=== PATIENT | female | born 1995 | race Caucasian/White ===

== ENCOUNTER 2019-01-28 23:00 | Outpatient (CLI) | payer MEDICAID, SELFPAY ==
[2016-05-11 18:35] VITALS: BMI 37.7
[2019-01-29 00:15] VITALS: BMI 42.1
--- NOTE | 2019-01-29 12:19 | OB.TRI.PN ---
Progress Notes Date of Service: 01/29/19 Progress Note: Presented to L&D with complaint of decreased movement. at 37w5d. Had felt baby 3-4 times in last hour but just less than usual. Advised to come in for evaluation. O: NST 125, moderate variability, accels, variable decel. Reactive Irregular contractions. A: Decreased movement P: 1) Reactive NST 2) Irregular contractions, patient not feeling them, mild to palpation per nursing. ok to D/C home. Instructions given to call if increased pain with contractions.
== END 2019-01-29 00:27 | disposition home or self-care (01) ==
LOC: WPOUT 23:38 → WP 23:39
PROVIDERS: Family Provider Family Medicine; PCP Family Medicine; Referring Provider Obstetrics & Gynecology; Visit Provider Obstetrics & Gynecology
DX: O36.8130 Decreased fetal movements, third trimester, not applicable or unspecified (principal); Z3A.37 37 weeks gestation of pregnancy
CPT/HCPCS: 59025; 59050; 99218; G0378

== ENCOUNTER 2019-02-12 05:05 | Inpatient (IN) | payer BC, MEDICAID, SELFPAY ==
--- NOTE | 2019-02-07 13:44 | PCM.HP.BLA ---
History and Physical Date of Admission: 02/12/19 Iliana Duncan Physician ENGINEERING VICE PRESIDENT H&P Signed Encounter Date: 02/07/2019 Expand All Collapse All Expand widget buttonCollapse widget button Hide copied text Hover for detailscustomization button Bernadine TOBIN is a 23 year old female who presents for preop for repeat . Patient was requesting etodolac if she goes into spontaneous labor prior to her date. Patient currently denies any significant contractions, vaginal bleeding, leaking fluid. Patient reports good movement. Patient denies any chest pain, shortness of breath or dizziness. PAST MEDICAL HISTORY PAST SURGICAL HISTORY FAMILY HISTORY SOCIAL HISTORY CURRENT MEDICATIONS Allergies As of Date: 02/07/2019 Allergen Noted Reaction POISON RAFAEL 03/16/2011 Rash and Other: See Comments SEASONAL ALLERGIES 02/29/2012 Other: See Comments ZOLOFT [SERTRALINE HCL] 09/19/2017 Other: See Comments Fully Assessed 02/07/2019 REVIEW OF SYSTEMS Abdomen: no pain Bladder: no dysuria.. Expanded ROS: GENERAL: Negative for fever Allergies and current medication updated:Yes EXAM: BP 118/76 Wt 227 lb (103.0kg) LMP 04/07/2018 GENERAL: pleasant, female in no apparent distress HEENT: Normocephalic, atraumatic, mucus membranes moist and no lesions NECK: full range of motion DERMATOLOGY: Normal, without lesions, non-icteric and non-hirsute ABDOMEN: soft, gravid, non tender. PELVIC: closed/thick/high NEURO: alert and oriented x3,exam grossly non-focal EXTREMITIES: normal ASSESSMENT AND PLAN: Encounter Diagnosis ICD-10-CM 1. History of delivery, currently O34.219 URINE OB DIP B/O 2. 39 weeks gestation of Z3A.39 URINE OB DIP B/O 3. Pt has been counseled on risks/benefits and alternatives of surgery including but not limited to anesthesia, bleeding, infection, injury to pelvic structures including bowel, bladder, ureters and vessels. Pt wishes to proceed with surgery at this time. 4. Consent signed. All questions answered. preop instructions reviewed. Iliana Laird MD Routine Office Visit on 02/07/2019
[2019-02-12] VITALS (21 sets, daily range): BP systolic 96–129; BP diastolic 41–81; PULSE 58–98; RESP 14–18; TEMP 36.1–36.6; O2SAT 97–100; BMI 40.3
[2019-02-12] MEDS: Lactated Ringers 1,000 ML 999 ML IV (06:05)
[2019-02-12 06:20] LABS: Absolute Lymphocyte Count 3.27 X10^3/uL (0.83-4.51); Absolute Neutrophil Count 4.7 X10^3/uL (2.0-7.7); Basophil# 0.03 X10^3/uL; Basophil% 0.4 % (0-1); Eosinophil# 0.06 X10^3/uL; Eosinophils% 0.7 % (0-5); Hematocrit 34.5 % (37-47); Hemoglobin 11.3 g/dL (12.0-15.0); Lymphocyte # 3.27 X10^3/ul (4.0); Lymphocyte % 38.2 % (19-41); Mean Corp Hgb Conc 32.8 g/dL (32-36); Mean Corpuscular Hgb 28.9 pg (27.0-32.0); Mean Corpuscular Volume 88.2 fL (81-99); Mean Platelet Vol. 11.2 fl (6.2-12.0); Monocyte# 0.44 X10^3/uL; Monocyte% 5.1 % (0-10); NRBC Flagged by Analyzer 0 % (0-5); Neutrophil # 4.72 X10^3/uL (2.7-7.7); Neutrophil % 55.2 % (47-70); POSITIVE MORPHOLOGY YES; Platelet Count 205 K/mm3 (150-450); Red Blood Count 3.91 M/mm3 (4.2-5.4); White Blood Count 8.6 K/mm3 (4.4-11.0)
[2019-02-12 06:32] LABS: Differential Indicated SCAN CRITERIA MET
[2019-02-12] MEDS: Lactated Ringers 1,000 ML 150 ML IV ×2 (07:02→07:14)
[2019-02-12] MEDS: Sodium Citrate/Citric Acid 30 ML UDC PO (07:02)
[2019-02-12 07:09] LABS: Differential Comment SCANNED; Microcytosis 2+; Rouleaux 1+
[2019-02-12] MEDS: Cefazolin 2 GM in 0.9% Normal Saline 100 ML IV (07:27)
--- NOTE | 2019-02-12 08:10 | PCM.OPRPT ---
Report of Operation prototype assembler electronics: Makeda Giron Type of Anesthesia:: Spinal Specimen's removed: placenta Drains: schwartz Fluids Replaced: 2000 Grafts/Implants Used: none - Complications none Delivery Classification: Scheduled Final JAGUAR: 02/14/19 Final JAGUAR Source: US <20 weeks Gestational age: 39 Weeks and 5 Days Indications for : Repeat Elective Description of Procedure: Operative note: After informed consent was obtained the patient was taken the operating room she was given spinal anesthesia. She was then placed in the supine position. She was prepped and draped in the normal sterile fashion. Anesthesia was found to be adequate. At this time a Pfannenstiel skin incision was made with a knife was carried down to the underlying layer of the fascia. The fascial incision was then extended laterally using curved Martinez scissor. Attention was then turned to the superior aspect of the fascial edge was grasped with 2 straight Kelly clamps tented up and the rectus muscle dissected off sharply using curved Martinez scissor. Attention was then turned to the inferior aspect where again Assonet clamps were placed in the rectus muscles were tented up and the fascia was dissected off sharply using the curved Martinez scissor. Allis clamps placed on rectus muscle- seperated with scalpel- and peritoneum was entered bluntly. Gentle opposing traction was placed. At this time the vesicouterine peritoneum was identified. Scalpel was used to make a uterine incision in a low transverse fashion. The uterus was then entered bluntly gentle opposing traction was placed to extend this incision. Membranes were ruptured clear. Infant's head was brought to the uterine incision was delivered atraumatically. Cord was clamped and cut was handed to the waiting nursery team. The Placenta was removed from the uterus. The uterus was then removed from the abdominal cavity. The uterus was cleared of all clots and debris using a lap. At this time the uterine incision was reapproximated using #1 Vicryl in a running locked fashion. Followed by a second imbricating layer with [id number] sutures. Hemostasis was appreciated. Posterior cul-de-sac was then cleared of all clots and debris. Uterus was placed back in the abdominal cavity. Gutters were cleared of all clots and debris. Uterine incision was reevaluated and noted to be of excellent hemostasis. At this time the peritoneum and muscle were grasped with Kellys reapproximated using #2 Vicryl suture in a running fashion. Fascia was then reapproximated using #1 PDS in a running fashion. Subcu layer was reapproximated with #2 0 plain gut suture in an interrupted fashion. Subcu layer was closed using 4-0 Monocryl in a subcu fashion. Dry sterile dressing was applied. Instrument lap needle count correct ?2. Anticipated normal postoperative course. Amniotic Membrane Rupture Type: Artificial Amniotic Fluid Description: Clear Placenta Disposition: [facility] Specimen(s) sent to pathology: none Drain: Schwartz to straight drain Fluids Replaced: 1999 Cord Entanglement: None Nuchal Cord Compression: Without compression Cord Vessel Description: 3 Vessels Esitmated Blood Loss (ml): 650 Infant Gender: Female (1 minute): 9 (5 minute): 9 Delayed cord clamping: Yes Pre-op Antibiotic Given: Ancef 2 grams IV x1 Pt instructed on risks of surgery: Bleeding, Anesthesia Risks, Infection, Need for Future C-Sections, Injury to surrounding structure(s) including bowel and bladder - Admit VTE Documentation VTE Present on Admission: Yes VTE Pharm Prophylaxis ordered?: Yes
[2019-02-12] MEDS: Oxytocin 30 units/NS 500 ml 30 UNITS/500 ML IV.SOLN 167 UNITS IV (08:30)
[2019-02-12] MEDS: Lactated Ringers 1,000 ML 100 ML IV ×2 (11:45→21:46)
[2019-02-12] MEDS: Ketorolac 30 MG/ML Syringe IV ×2 (14:02→20:04)
--- NOTE | 2019-02-12 18:49 | NURSING ---
charting by Livier Perez RN reviewed and agreed upon.
[2019-02-12] MEDS: 0.9% Saline Lock 10 ML Syringe 5 ML IV (20:04)
[2019-02-13] VITALS (7 sets, daily range): BP systolic 94–129; BP diastolic 73–89; PULSE 62–94; RESP 14–18; TEMP 36.4–36.7; O2SAT 96–100
[2019-02-13] MEDS: Ketorolac 30 MG/ML Syringe IV ×4 (03:20→19:54)
[2019-02-13] MEDS: Enoxaparin 40 MG/0.4 ML Syringe SC (07:37)
--- NOTE | 2019-02-13 07:51 | PCM.PN.OB ---
Subjective: Seen at bedside doing well. Patient reports good pain control. Lochia mild. Voiding without difficulty. Breast-feeding is going well. Patient reports no flatus at this time but denies any nausea or vomiting. Denies any chest pain, shortness of breath or dizziness. - Physical Exam General: Alert, Oriented x3 Abdomen: Soft, Non-Distended, - - Appropriately tender to palpation. Incision dressing is dry and intact. Fundus is firm. Extremities: No Calf Tenderness Vital Signs Temp Pulse Resp BP Pulse Ox 97.6 F L 70 16 94/73 98 02/13/19 04:00 02/13/19 06:00 02/13/19 06:00 02/13/19 04:00 02/13/19 06:00 Oxygen Delivery Method Room Air Weight: 103.238 kg Body Mass Index (BMI) 40.3 Intake and Output for Last 24 Hours 02/11/19 02/12/19 02/13/19 23:59 23:59 23:59 Intake Total 4882.5 / 4882.5 1323.33 / 1323.33 Output Total 225 / 225 600 / 600 Balance 4657.5 / 4657.5 723.33 / 723.33 Medical Necessity - Tobacco Use Smoking Status: Never smoker Assessment/Plan Postoperative day #1, doing well Routine care Ambulation Pain management Monitor a.m. lab results
[2019-02-13] MEDS: 0.9% Saline Lock 10 ML Syringe 5 ML IV ×3 (08:13→19:55)
[2019-02-13 08:17] LABS: Hematocrit 30.4 % (37-47); Hemoglobin 9.7 g/dL (12.0-15.0); Mean Corp Hgb Conc 31.9 g/dL (32-36); Mean Corpuscular Hgb 28.6 pg (27.0-32.0); Mean Corpuscular Volume 89.7 fL (81-99); Mean Platelet Vol. 11.1 fl (6.2-12.0); POSITIVE MORPHOLOGY YES; Platelet Count 171 K/mm3 (150-450); RBC Distribution Width CV 22.2 % (11.6-14.6); RBC Distribution Width SD 71.1 fl (35.1-43.9); Red Blood Count 3.39 M/mm3 (4.2-5.4); White Blood Count 8.1 K/mm3 (4.4-11.0)
[2019-02-13 08:19] LABS: Scan Indicated on CBC? Y/N YES- FLAGS NOTED
[2019-02-13] MEDS: oxyCODONE 5 MG Tablet PO ×2 (12:40→23:34)
--- NOTE | 2019-02-13 18:00 | CASEMGMT ---
Social Work Date of Referral: 02/12/19 Referred By: Dr. Laird Date of Intervention: 02/13/19 Reason for Referral: Mother of baby (MOB) with history of depression and anxiety. History obtained from: Chart, MOB, Nursing staff. Household composition: MOB, Father of baby (FOB), Manoj Hicks age 2 and now this , Erin Wise. Patient's parent/guardian status: MOB and FOB have custody of first child, Manoj and now this child. Medical History: MOB with history of depression and anxiety as well as depression. Apgars: 9,9. Weight: 4.237kg. Educational Status: MOB with high school diploma. MOB denies any comprehension or understanding difficulties. Financial Status: Stable. FOB works full-time as [employer] (3rd shift). 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 MOB will have as much times as needed off work. Infant Supplies: MOB stating to have all needed supplies including but not limited by, a crib, car seat, infant clothing, bottles etc. Childcare/Caregiver(s): MOB and FOB. MOB's parents currently have Manoj. Transportation: No concerns. Programs/Agencies Involved: MOB stating to have a history of utilizing [facility]. MOB stating to be active with WIC. MOB with a history of counseling services through [facility]. Children Services/Legal Issues: No Children services history or legal issues. Behavioral Health Issues: None Mental Health History: MOB stating to have a history of depression, anxiety and depression. Substance Use History: MOB and FOB deny and abuse or use of substances. Maternal and Infant Drug Screens: None obtained. Family/Social Stressors: MOB and FOB deny any current stressors. MOB was able to acknowledged change with having two young children in the home now as being an adjustment. Support Systems: MOB stating that MOB's family lives local and is able to assist as needed. FOB will also have at least a week off work. ASSESSMENT: Met with MOB, FOB and Infant in room. This vp digital marketing social media and crm introduced self as well as vp digital marketing social media and crm role. MOB and FOB open to speaking with this vp digital marketing social media and crm. resting in MOB's arms during assessment. MOB and FOB reporting to have a connection with and that was planned. MOB and FOB have been together for 10 years and for 1.5 years. MOB and FOB state to have a positive relationship. MOB and FOB interacting well during assessment. MOB gazing often towards infant. MOB and FOB stating to be excited that infant is here. This vp digital marketing social media and crm broached topic of depression, anxiety and depression with MOB. MOB confirming to have a history of depression and anxiety and to have had depression with first . MOB stating that with first MOB did have some thoughts of suicide but no plan or intent. MOB stating to have gotten help. MOB denies any inpatient hospitalization for mental health. MOB stating to have started counseling through [facility] and this helped MOB through depression. MOB denies any current counseling but plan to beginning counseling services within the next few weeks to get a running start. This vp digital marketing social media and crm supporting MOB's decision to set up counseling appointment. MOB aware of signs and symptoms of depression and risk for further depression. MOB also able to identifying that MOB is in a better place with this as MOB and FOB were living with family with first . MOB stating it is a good thing that MOB and FOB now have their own place. MOB reporting to have management mental health with medication as well but denies any current medication. MOB stating to believe that counseling is what helps. MOB stating to no concerns on returning to home and adjusting to having two infants within the home. MOB stating to be able to contact family or spouse if needing more support. All questions were answered. This vp digital marketing social media and crm did provided MOB with information on depression, [facility], [facility], and [facility] resources. This vp digital marketing social media and crm did inquiring about [facility] referrals as MOB did have [facility] in the past, MOB declining at this time but provided with information on self referral if MOB would change mind. PLAN: Infant to discharge to home with MOB, FOB, and Manoj. No other services requested or indicated. Aydee DAWSON, HUMBLE
[2019-02-13] MEDS: Senna/Docusate Sodium 1 Tablet PO (23:34)
[2019-02-14] MEDS: Ketorolac 30 MG/ML Syringe IV (01:07)
[2019-02-14] MEDS: 0.9% Saline Lock 10 ML Syringe 5 ML IV (01:08)
[2019-02-14 01:16] VITALS: BP 115/72; PULSE 72; RESP 14; TEMP 36.7; O2SAT 96
[2019-02-14] MEDS: Enoxaparin 40 MG/0.4 ML Syringe SC (06:01)
[2019-02-14 07:42] VITALS: BP 108/61; PULSE 53; RESP 18; TEMP 36.1
--- NOTE | 2019-02-14 08:07 | PCM.PN.OB ---
Subjective: Patient seen at bedside doing well. Patient reports good pain control. Mild lochia. Breast-feeding is going well. Passing flatus. Denies nausea, vomiting, chest pain, shortness of breath. - Physical Exam General: Alert, Oriented x3 Abdomen: Soft, Non-Distended, - - Fundus firm. Incision dressing is dry and intact Vital Signs Temp Pulse Resp BP Pulse Ox 97.0 F L 53 L 18 108/61 96 02/14/19 07:42 02/14/19 07:42 02/14/19 07:42 02/14/19 07:42 02/14/19 01:16 Oxygen Delivery Method Room Air Weight: 103.238 kg Body Mass Index (BMI) 40.3 Intake and Output for Last 24 Hours 02/12/19 02/13/19 02/14/19 23:59 23:59 23:59 Intake Total 4882.5 / 4882.5 1323.33 / 1323.33 Output Total 225 / 225 1300 / 1300 Balance 4657.5 / 4657.5 23.33 / 23.33 Laboratory Tests Past 24 Hrs 02/13/19 08:00 WBC 8.1 RBC 3.39 L Hgb 9.7 L Hct 30.4 L MCV 89.7 MCH 28.6 MCHC 31.9 L RDW Std Deviation 71.1 H RDW Coeff of Chloe 22.2 H Plt Count 171 MPV 11.1 Differential Comment COMMENT Medical Necessity - Tobacco Use Smoking Status: Never smoker Assessment/Plan POD #2, doing well Routine care Pain management Ambulation DC home
--- NOTE | 2019-02-14 08:12 | DCINST_ITS ---
Discharge Diet: No Restrictions Discharge Activity: Return to Normal Activity, May Not Drive - for 2 weeks, May not drive while taking narcotic pain medications., May Shower, May Take a Tub Bath - in 7 days. May resume sexual activity in: 4-6 weeks Lifting Restrictions: 20 pounds Additional Activity Instructions:: Nothing in the vagina for 4-6 weeks. You may return to work/school in 6 weeks. Call your doctor if your incision/area has: Continuous Slow Oozing, Sudden Increased Bleeding, Increased Pain/ Swelling, Increased Redness, Foul Smelling Discharge Call your doctor if you observe: Fever of 101 or Higher, Using more than one pad per hour - for 2 hours Suture Line Care: Avoid Pulling/Pushing, Avoid Pinching/Bending Cleanse incision/area with: Keep Dressing Clean & Dry Additional Instructions: If you experience any of the following, contact your healthcare provider. * Bleeding that soaks a pad every hour for 2 hours * Fever 100.4 or higher * Unrelieved incision or abdominal pain * Swelling, redness, discharge or bleeding from your incision or episiotomy site * Your incision begins to separate * Problems urinating (including inability to urinate or burning while urinating). * Visual changes * Severe headache * Flu-like symptoms * Pain or redness in one of both of your breasts * Pain, warmth, tenderness or swelling in your legs, especially the calf area * Frequent nausea and vomiting * Symptoms of depression or anxiety If you experience any of the following, call 911 or go to the nearest Emergency Room. * Chest pain * Problems breathing * Seizure activity * Partial or complete paralysis of a body part, slurred speech, weakness or drooping of the face, or a sudden inability to walk or hold your balance Allergies/Adverse Reactions: Allergies sertraline [From Zoloft] Adverse Reaction (Verified 02/12/19 07:10) Other Medications to take at Discharge Ibuprofen [Motrin] 600 mg PO Q6H PRN PRN #60 tab 02/14/19 Oxycodone HCl/Acetaminophen [Percocet 5/325] 1 tablet PO Q6H PRN PRN 7 Days #15 tablet 02/14/19 Senna/Docusate Sodium [Senokot-S] 1 tab PO DAILY PRN #20 tab 02/14/19 SimETHICONE [Mylicon] 80 mg PO PCHS PRN #30 tab 02/14/19 The following prescriptions were given: Ibuprofen [Motrin] 600 mg PO Q6H PRN PRN #60 tab PRN Reason: Mild Pain (-08/27) Transmission Status: Pending to [facility] [facility] SimETHICONE [Mylicon] 80 mg PO PCHS PRN #30 tab PRN Reason: Indigestion/stomach pain Transmission Status: Pending to [facility] Oxycodone HCl/Acetaminophen [Percocet 5/325] 1 tablet PO Q6H PRN PRN 7 Days #15 tablet PRN Reason: Pain Transmission Status: Received by [facility] [facility] Senna/Docusate Sodium [Senokot-S] 1 tab PO DAILY PRN #20 tab PRN Reason: Constipation Transmission Status: Pending to [facility] [facility] Follow-Up: Call to make an appointment with your doctor for an incision check in 1-2 weeks. You will also need a 6 week post- follow up appointment. Test results from this visit will be discussed in further detail at your follow- up appointment, if applicable. Please Follow Up With: Iliana Laird MD - Call to make an appointment for an incision check in 1-2 [phone] When: You will need a post- check in 6 weeks. Primary Care Physician: Asif Riley MD [Primary Care Provider] -
--- NOTE | 2019-02-14 08:13 | PCM.DC.BLA ---
Discharge Summary Date of Admission: 02/12/19 Date of Discharge: 02/14/19 Summary: Patient was admitted to [facility] on 02/12/2019 for scheduled repeat section at 39 weeks and 5 days gestation. Patient originally wanted to [place] however did not going to spontaneous labor and decided to proceed with a repeat section. She had an uncomplicated low transverse section with a live female infant born weighing 9 pounds 5 ounces. Patient had a stable hemoglobin hematocrit postoperatively. Had an uncomplicated postoperative course and was discharged home on postoperative day #2 on 02/14/2019 - Physical Exam Vital Signs Temp Pulse Resp BP Pulse Ox 97.0 F L 53 L 18 108/61 96 02/14/19 07:42 02/14/19 07:42 02/14/19 07:42 02/14/19 07:42 02/14/19 01:16 Oxygen Delivery Method Room Air Weight: 103.238 kg Body Mass Index (BMI) 40.3 Intake and Output for Last 24 Hours 02/12/19 02/13/19 02/14/19 23:59 23:59 23:59 Intake Total 4882.5 / 4882.5 1323.33 / 1323.33 Output Total 225 / 225 1300 / 1300 Balance 4657.5 / 4657.5 23.33 / 23.33 Laboratory Tests Past 24 Hrs 02/13/19 08:00 WBC 8.1 RBC 3.39 L Hgb 9.7 L Hct 30.4 L MCV 89.7 MCH 28.6 MCHC 31.9 L RDW Std Deviation 71.1 H RDW Coeff of Chloe 22.2 H Plt Count 171 MPV 11.1 Differential Comment COMMENT
[2019-02-14] MEDS: Ibuprofen 600 MG Tablet PO (08:23)
[2019-02-14] MEDS: oxyCODONE 5 MG Tablet PO (13:20)
[2019-02-14 13:21] VITALS: BP 142/88; RESP 18; TEMP 36.3
== END 2019-02-14 14:25 | disposition home or self-care (01) | DRG 807 ==
PROVIDERS: Admitting Provider Obstetrics & Gynecology; Family Provider Family Medicine; PCP Family Medicine; Referring Provider Obstetrics & Gynecology; Visit Provider Obstetrics & Gynecology
PROC: 10E0XZZ Delivery of Products of Conception, External Approach (ICD-10-PCS; CPT 59514; principal; 2019-02-12 07:15)
DX: O34.219 Maternal care for unspecified type scar from previous cesarean delivery (principal); Z3A.39 39 weeks gestation of pregnancy; Z37.0 Single live birth
CPT/HCPCS: 36415; 85025; 85027; 86850; 86900; 86901; 99218; J7120; A4216; G0378

== ENCOUNTER → 2021-01-08 12:06 | Outpatient (CLI) | payer MEDICAID, SELFPAY ==
[2020-12-19 14:52] VITALS: BMI 40.3
[2021-01-08 13:32] LABS: hCG Titer Quant., Serum 2647 mIU/mL (1-3)
== END ==
PROVIDERS: PCP Family Medicine; Referring Provider Obstetrics & Gynecology; Visit Provider Obstetrics & Gynecology
DX: O36.80X0 Pregnancy with inconclusive fetal viability, not applicable or unspecified (principal); Z3A.00 Weeks of gestation of pregnancy not specified
CPT/HCPCS: 36415; 84702

== ENCOUNTER → 2021-01-08 15:25 | Outpatient (CLI) | payer OTHER, MEDICAID, SELFPAY ==
[2020-12-19 14:52] VITALS: BMI 40.3
--- NOTE | 2021-01-08 15:27 | US_ITS ---
STUDY: FIRST TRIMESTER OBSTETRICAL ULTRASOUND REASON FOR EXAM: Female, 25 years old. Vaginal bleeding and . Beta hCG of 2647. LMP: 11/21/2020. TECHNIQUE: Transabdominal and Transvaginal TECHNICAL QUALITY: Adequate. PRIOR ULTRASOUND: None. FINDINGS: There is visualization of a single gestational sac in a normal intrauterine position. The mean sac diameter (MSD) measures 0.78 cm, indicating an estimated gestational age (EGA) of 5 weeks, 3 days. The gestational sac shape is within normal limits. There is a visualized yolk sac. The yolk sac measures 0.3 cm. The placenta is non-visualized. There is no demonstrated embryo ( pole). The estimated gestation age (EGA) by LMP is 6 weeks, 6 days. The estimated date of delivery (JAGUAR) by LMP is 08/28/2021. The estimated gestation age (EGA) by US is 5 weeks, 3 days. The estimated date of delivery (JAGUAR) by US is 09/07/2021. The uterus measures 10.2 x 5.9 x 4.3 cm. There is a 3.4 x 2.7 x 1.7 cm hypoechoic area adjacent to the gestational sac thought to represent a subchorionic hemorrhage. There is no demonstrated uterine fibroid. The cervix is closed. The right ovary measures 3.1 x 2.8 x 2.8 cm. There is a 2.2 x 2.3 x 1.9 cm simple cyst. There is no visualized right adnexal mass or complex lesion. The left ovary measures 2.4 x 1.8 x 1.9 cm. There is a 2.2 x 1.9 x 2.3 cm cyst. There is no visualized left adnexal mass or complex lesion. There is no fluid in the cul de sac. US/Transvaginal w/Preg US IMPRESSION: 1. Intrauterine gestational sac with yolk sac but no pole. Estimated gestational age is 5 weeks, 3 days with an JAGUAR of 09/07/2021. 2. Small subchorionic hemorrhage. 3. Bilateral ovarian cysts. Electronically Signed: Rhett Carmona DO at 16:53 EDT Tel [phone], Service support ,
== END ==
PROVIDERS: PCP Family Medicine; Referring Provider Obstetrics & Gynecology; Visit Provider Obstetrics & Gynecology
DX: O20.8 Other hemorrhage in early pregnancy (principal); O36.80X0 Pregnancy with inconclusive fetal viability, not applicable or unspecified; Z3A.01 Less than 8 weeks gestation of pregnancy
CPT/HCPCS: 36415; 76817; 84702

== ENCOUNTER 2021-01-09 17:03 | Emergency (ER) | payer OTHER, MEDICAID, SELFPAY ==
[2020-12-19 14:52] VITALS: BMI 40.3
[2021-01-09 17:06] VITALS: BP 139/91; PULSE 106; RESP 16; TEMP 36.6; O2SAT 98; BMI 46.0
[2021-01-09 17:11] VITALS: BP 139/94; PULSE 102; RESP 16; O2SAT 98
--- NOTE | 2021-01-09 17:22 | US_ITS ---
EXAM: US , TRANSVAGINAL : 1995 CLINICAL INDICATION: pain, bleeding TECHNIQUE: Real-time transvaginal obstetrical ultrasound of the maternal pelvis and a first trimester with image documentation. Transvaginal imaging was used for better evaluation of the fetus and adnexa. This report was created using [employer] report generation technology. COMPARISON: None. FINDINGS: GESTATION: There is a gestational sac present with a mean sac diameter of 0.9 cm 8 5 weeks 4 days. There is a yolk sac present but no evidence of a pole. PLACENTA/AMNIOTIC FLUID: There is heterogeneous tissue adjacent to the yolk sac that measures roughly 3.2 x 2 x 1.1 cm may represent a subchorionic hemorrhage. UTERUS/CERVIX: The uterus measures 10.6 x 4.4 x 3.8 cm. No myometrial mass. OVARIES: The right ovary measures 3.5 x 2.3 x 2.8 cm. There is a 1.9 x 2.1 cm anechoic structure compatible with a cyst. The left ovary was not visualized. FREE FLUID: No free fluid. US/Transvaginal w/Preg US IMPRESSION: 1. Gestational sac with an average ultrasound age of 5 weeks 4 days. There is a yolk sac present but no evidence of a pole. There is an anechoic structure in the left ovary compatible with a cyst. 2. Heterogeneous tissue adjacent to the gestational sac which may represent a subchorionic hemorrhage. at 1845 Reported and signed by: Mateo Carter MD Electronically Signed: Mateo Carter MD at 18:44 EDT Tel , Service support ,
--- NOTE | 2021-01-09 17:36 | ED.VIS.FEGU ---
HPI HPI - Female History of Present Illness Chief Complaint: Vag Bld, Preg Informant: patient Narrative Narrative: Patient is G4, P2 present with worsening vaginal bleeding and cramping. Her last menstrual period was November 21 and she is approximately 6 weeks gestation. She started having bleeding and cramping yesterday. She had ultrasound yesterday as well as quant. Her ultrasound showed single intrauterine gestational sac with yolk sac but no pole. Estimated gestational age of 5 weeks and 3 days and a small subchorionic hemorrhage. Patient had bilateral ovarian cyst. Her quant was 2600. Patient had increased bleeding with some passage of clots and cramping today. She states she is not needing to use a pad and just has blood with wiping. Her ENVIRONMENTAL EMERGENCIES ASSISTANT sent her to the emergency room to be evaluated further and recommended a repeat ultrasound. Patient denies any other complaints at this time. Chart review shows her blood type is Rh+. PFSH PFSH Home Medications sertraline 100 mg tablet 100 mg PO DAILY 01/06/21 [History Last Taken Unknown] Allergy/AdvReac Type Severity Reaction Status Date / Time No Known Allergies Allergy Verified 01/09/21 17:23 Family History Grandmother Kidney disease Brother Charcot Franchesca Tooth muscular atrophy Surgical History S/P breast biopsy, bilateral S/P Social History adopted: No household members: spouse and children number of children: 2 current occupational status: unemployed current occupation: [employer] pets and animals: Yes (avoid litter box) pets and animals: cat(s) Smoking Status: Never smoker alcohol intake: current details: not while substance use type: does not use ROS ROS ED Constitutional Constitutional ED: Denies chills or fever(s) Eyes Eyes: Denies change in vision ENT ENT ED: Denies rhinorrhea or sore throat Cardiovascular Cardiovascular: Denies chest pain or palpitations Respiratory/Chest Respiratory/Chest: Denies cough or dyspnea Gastrointestinal Gastrointestinal: Reports abdominal pain; Denies diarrhea, nausea or vomiting Genitourinary Genitourinary ED: Reports other Details: vaginal bleeding ; Denies dysuria or hematuria Musculoskeletal Musculoskeletal: Denies arthralgias or myalgias Integumentary Denies rash Neurologic Neurologic: Denies headache(s) or weakness Psychiatric Psychiatric: Denies depression EXAM Physical Exam Const Vital Signs: 01/09/21 17:06 01/09/21 17:11 01/09/21 18:53 Temperature 98 F Temperature Source Temporal Pulse Rate 106 H 102 H 90 Respiratory Rate 16 16 16 Blood Pressure 139/91 H 139/94 H 119/91 H Blood Pressure Mean 107 109 100 Pulse Ox 98 98 97 Oxygen Delivery Method Room Air Room Air Room Air Positive well nourished and well developed General Appearance ED: well developed HEENT Reports moist mucous membranes Negative for tenderness Eyes EOMs intact bilaterally Neck supple Chest Wall inspection of chest normal Resp normal respiratory effort and clear to auscultation bilaterally Cardio regular rate and regular rhythm GI normal to inspection, nondistended, normoactive bowel sounds no CVA tenderness Extremity normal to inspection and full ROM Neuro oriented x3 Sensorium / Orientation: alert Motor Exam: Negative for general weakness Psych mental status grossly normal Mood & Affect: tearful Skin no rashes or lesions noted MDM MDM MDM Narrative Medical decision making narrative: Patient evaluated for vaginal bleeding in early . Quant is elevating it went from [id number] and less than 24 hours. Transvaginal ultrasound does not show pole but does show gestational sac and Yolk sac. No free fluid is seen however there is a subchorionic hemorrhage noted. No findings consistent with an ectopic at this time. Patient is counseled that the still consider threatened . She is counseled on return precautions. Did discuss with her ENVIRONMENTAL EMERGENCIES ASSISTANT who follow-up in the clinic with her. Will take Tylenol as needed for pain. Patient is counseled on signs and symptoms requiring return to the emergency room. Patient verbalizes agreement and understand this plan. Patient discharged home in stable and improved condition. Lab Data Labs: Laboratory Results - last 24 hr 01/09/21 01/09/21 17:10 17:10 WBC 11.0 RBC 4.47 Hgb 12.4 Hct 40.1 MCV 89.7 MCH 27.7 MCHC 30.9 L RDW Std Deviation 44.3 H RDW Coeff of Chloe 13.5 Plt Count 505 H MPV 10.1 Immature Gran % (Auto) 0.500 Neut % (Auto) 65.0 Lymph % (Auto) 26.9 [place] % (Auto) 5.8 Eos % (Auto) 1.2 Baso % (Auto) 0.6 Absolute Neuts (auto) 7.2 Absolute Lymphs (auto) 2.96 Nucleated RBC % 0 HCG, Quant 3015 H Radiography Diagnostic Testing: Radiology Impression Obstetrics Ultrasound 01/09/21 17:22 IMPRESSION: 1. Gestational sac with an average ultrasound age of 5 weeks 4 days. There is a yolk sac present but no evidence of a pole. There is an anechoic structure in the left ovary compatible with a cyst. 2. Heterogeneous tissue adjacent to the gestational sac which may represent a subchorionic hemorrhage. at 1845 Reported and signed by: Mateo Carter MD Electronically Signed: Mateo Carter MD at 18:44 EDT Tel , Service support , Discharge Plan Triage Chief Complaint: Vag Bld, Preg ED Provider: Jess Sotomayor Dx/Rx/DC Orders Clinical Impression: Threatened Instructions: ED Possible Miscarriage ... Prescriptions: No Action sertraline 100 mg tablet 100 mg PO DAILY RF: 0 Primary Care Provider: Asif Riley Referrals: Asif Riley MD [Primary Care Provider] - Candace Richardson MD [STAFF PHYSICIAN] - Activity Restrictions/Additional Instructions: Return the emergency room or call your ENVIRONMENTAL EMERGENCIES ASSISTANT if you have pain that doubles you over if you start having clots passed the size of a golf ball or if you start bleeding through a pad an hour for 2 hours in a row. Disposition Disposition: Home, Self Care
[2021-01-09 17:56] LABS: Absolute Lymphocyte Count 2.96 X10^3/uL (0.83-4.51); Absolute Neutrophil Count 7.2 X10^3/uL (2.0-7.7); Basophil# 0.07 X10^3/uL; Basophil% 0.6 % (0-1); Eosinophil# 0.13 X10^3/uL; Eosinophils% 1.2 % (0-5); Hematocrit 40.1 % (37-47); Hemoglobin 12.4 g/dL (12.0-15.0); Lymphocyte # 2.96 X10^3/ul (0.83-4.51); Lymphocyte % 26.9 % (19-41); Mean Corp Hgb Conc 30.9 g/dL (32-36); Mean Corpuscular Hgb 27.7 pg (27.0-32.0); Mean Corpuscular Volume 89.7 fL (81-99); Mean Platelet Vol. 10.1 fl (6.2-12.0); Monocyte# 0.64 X10^3/uL; Monocyte% 5.8 % (0-10); NRBC Flagged by Analyzer 0 % (0-5); Neutrophil # 7.17 X10^3/uL (2.7-7.7); Platelet Count 505 K/mm3 (150-450); RBC Distribution Width CV 13.5 % (11.6-14.6); RBC Distribution Width SD 44.3 fl (35.1-43.9); Red Blood Count 4.47 M/mm3 (4.2-5.4)
[2021-01-09 18:23] LABS: hCG Titer Quant., Serum 3015 mIU/mL (1-3)
[2021-01-09] MEDS: Acetaminophen 325 MG Tablet 650 MG PO (18:25)
[2021-01-09 18:53] VITALS: BP 119/91; PULSE 90; RESP 16; O2SAT 97
[2021-01-09 19:10] VITALS: PULSE 88; RESP 15; O2SAT 98
== END 2021-01-09 19:11 | disposition home or self-care (01) ==
PROVIDERS: Emergency Provider Emergency Medicine; PCP Family Medicine
DX: O20.0 Threatened abortion (principal); O20.8 Other hemorrhage in early pregnancy; O34.81 Maternal care for other abnormalities of pelvic organs, first trimester; N83.202 Unspecified ovarian cyst, left side; N83.201 Unspecified ovarian cyst, right side; Z3A.01 Less than 8 weeks gestation of pregnancy
CPT/HCPCS: 76817; 84702; 85025; 99283; A4216

== ENCOUNTER → 2021-01-10 11:38 | Outpatient (CLI) | payer OTHER, MEDICAID, SELFPAY ==
[2021-01-09 17:06] VITALS: BMI 46.0
[2021-01-10 13:21] LABS: hCG Titer Quant., Serum 2466 mIU/mL (1-3)
== END ==
PROVIDERS: PCP Family Medicine; Referring Provider Obstetrics & Gynecology; Visit Provider Obstetrics & Gynecology
DX: O36.80X0 Pregnancy with inconclusive fetal viability, not applicable or unspecified (principal); Z3A.00 Weeks of gestation of pregnancy not specified
CPT/HCPCS: 36415; 84702

== ENCOUNTER → 2021-01-12 10:59 | Outpatient (CLI) | payer OTHER, MEDICAID, SELFPAY ==
[2021-01-09 17:06] VITALS: BMI 46.0
[2021-01-12 11:32] LABS: hCG Titer Quant., Serum 375 mIU/mL (1-3)
== END ==
PROVIDERS: PCP Family Medicine; Referring Provider Obstetrics & Gynecology; Visit Provider Obstetrics & Gynecology
DX: O20.0 Threatened abortion (principal); Z3A.00 Weeks of gestation of pregnancy not specified
CPT/HCPCS: 36415; 84702

== ENCOUNTER → 2021-02-18 | Outpatient (CLI) | payer OTHER, MEDICAID, SELFPAY ==
[2021-02-25 20:44] LABS: HPV Reflexed? NOT INDICATED
== END | disposition home or self-care (01) ==
LOC: LABSPEC 16:20
PROVIDERS: PCP Family Medicine; Referring Provider Nurse Practitioner Women's Health; Visit Provider Nurse Practitioner Women's Health
DX: Z12.4 Encounter for screening for malignant neoplasm of cervix (principal)
CPT/HCPCS: 88175; G0145

== ENCOUNTER → 2021-03-11 15:39 | Outpatient (CLI) | payer OTHER, MEDICAID, SELFPAY ==
[2021-03-11 16:46] LABS: hCG Titer Quant., Serum 22 mIU/mL (1-3)
== END ==
PROVIDERS: PCP Family Medicine; Referring Provider Nurse Practitioner Women's Health; Visit Provider Nurse Practitioner Women's Health
DX: N91.2 Amenorrhea, unspecified (principal)
CPT/HCPCS: 36415; 84702

== ENCOUNTER → 2021-03-13 16:04 | Outpatient (CLI) | payer OTHER, MEDICAID, SELFPAY ==
[2021-03-13 17:35] LABS: hCG Titer Quant., Serum 18 mIU/mL (1-3)
== END ==
PROVIDERS: PCP Family Medicine; Visit Provider Nurse Practitioner Women's Health
DX: N91.2 Amenorrhea, unspecified (principal)
CPT/HCPCS: 36415; 84702

== ENCOUNTER → 2021-03-15 12:03 | Outpatient (CLI) | payer OTHER, MEDICAID, SELFPAY ==
[2021-03-15 13:09] LABS: hCG Titer Quant., Serum 8 mIU/mL (1-3)
== END ==
PROVIDERS: PCP Family Medicine; Visit Provider Obstetrics & Gynecology
DX: Z87.59 Personal history of other complications of pregnancy, childbirth and the puerperium (principal)
CPT/HCPCS: 36415; 84702

== ENCOUNTER → 2021-03-22 11:41 | Outpatient (CLI) | payer OTHER, MEDICAID, SELFPAY ==
[2021-03-26 04:07] LABS: Dilute Russell Viper Venom 39.1 sec (0.0-47.0); PTT-LA 34.6 sec (0.0-51.9); Thrombin Time 20.7 sec (0.0-23.0)
[2021-03-26 14:27] LABS: Anti-Cardiolipin Ab, IgA, Qn < 9 APL U/mL (0-11); Anti-Cardiolipin Ab, IgG, Qn < 9 GPL U/mL (0-14); Anti-Cardiolipin Ab, IgM, Qn 17 MPL U/mL (0-12); Beta-2-Glycoprotein I IgA <9 (0-25); Beta-2-Glycoprotein I IgG <9 (0-20); Beta-2-Glycoprotein I IgM <9 (0-32); Dilute Prothrombin Time (dPT) 42.2 sec (0.0-55.0); Interpretation Comment: (.); dPT Confirm Ratio 1.62 Ratio (0.00-1.40)
== END ==
PROVIDERS: PCP Family Medicine; Visit Provider Obstetrics & Gynecology
DX: N96 Recurrent pregnancy loss (principal)
CPT/HCPCS: 36415; 86146; 86147

== ENCOUNTER 2021-05-11 14:30 | Outpatient (RCR) | payer OTHER, MEDICAID, SELFPAY | END 2021-05-19 23:59 | LOC: NS 14:30 | PROVIDERS: PCP Family Medicine; Visit Provider Obstetrics & Gynecology | DX: E66.01 Morbid (severe) obesity due to excess calories (principal); N96 Recurrent pregnancy loss; Z68.41 Body mass index [BMI] 40.0-44.9, adult; Z87.59 Personal history of other complications of pregnancy, childbirth and the puerperium | CPT/HCPCS: 97802; 97803 ==

== ENCOUNTER 2021-05-22 16:26 | Emergency (ER) | payer OTHER, MEDICAID, SELFPAY ==
[2021-05-22 16:27] VITALS: BP 148/101; PULSE 104; RESP 16; TEMP 36.4; O2SAT 99; BMI 43.7
--- NOTE | 2021-05-22 17:40 | RAD_ITS ---
STUDY: X-RAY CHEST REASON FOR EXAM: Female, 26 years old. SOB TECHNIQUE: AP COMPARISON: None. FINDINGS: Group of nodules projecting over the right lung base measure up to 1.9 cm. There is no demonstrated pleural abnormality. Normal size heart. Normal mediastinum and ladi. Normal visualized pulmonary arteries. Normal visualized aortic arch and descending thoracic aorta. Normal visualized thoracic spine. Normal visualized ribs, clavicles, and shoulders. There is no demonstrated abnormality of the visualized soft tissue structures of the upper abdomen. RAD/Chest 1 View (Portable) IMPRESSION: Nodular opacity in the right lung base could represent a focal pneumonitis versus pulmonary nodules versus chest wall artifact. Electronically Signed: Jeff Chopra MD ([place]) at 18:06 EST , Service support ,
[2021-05-22 18:55] VITALS: BP 122/83; PULSE 107; RESP 15; RESP 16; TEMP 39.2; O2SAT 100
[2021-05-22] MEDS: Ondansetron ODT 4 MG Tablet PO (20:02)
[2021-05-22 20:10] VITALS: BP 128/76; PULSE 105; RESP 20; O2SAT 96
--- NOTE | 2021-05-23 00:42 | EDS_ITS ---
HPI HPI - URI History of Present Illness Chief Complaint: Shortness of Breath Narrative Narrative: 26-year-old female presenting with chills, body aches, cough. She has already been diagnosed with COVID-19. She has some decreased p.o. intake but is not having vomiting. She describes body aches all over. She is ambulatory. She is not having chest pressure. No abdominal pain. No urinary complaints. ROS ROS ED Constitutional Constitutional ED: Reports chills and fever(s) Eyes Eyes: Denies blurry vision or change in vision ENT ENT ED: Reports rhinorrhea; Denies sore throat Respiratory/Chest Respiratory/Chest: Reports cough and dyspnea Gastrointestinal Gastrointestinal: Denies abdominal pain, nausea or vomiting Genitourinary Genitourinary ED: Denies dysuria or hematuria Musculoskeletal Musculoskeletal: Reports myalgias; Denies arthralgias or neck pain Integumentary Denies abscess or rash Neurologic Neurologic: Denies headache(s) or weakness Psychiatric Psychiatric: Denies anxiety or depression PFSH PFS Medical History History of recurrent miscarriages Home Medications ondansetron 4 mg PO Q8H PRN PRN #20 tab 05/22/21 [Rx Last Taken Unknown] Allergy/AdvReac Type Severity Reaction Status Date / Time No Known Allergies Allergy Verified 02/18/21 15:07 Family History Grandmother Kidney disease Brother Charcot Franchesca Tooth muscular atrophy Surgical History S/P breast biopsy, bilateral S/P Social History adopted: No household members: spouse and children number of children: 2 current occupational status: unemployed current occupation: [employer] pets and animals: Yes (avoid litter box) pets and animals: cat(s) Smoking Status: Never smoker alcohol intake: current details: not while substance use type: does not use seatbelt use: always do you feel safe at home: Yes additional social history: Javier EXAM Physical Exam Const Vital Signs: 05/22/21 16:27 05/22/21 18:55 05/22/21 20:10 Temperature 97.6 F L 102.5 F H Temperature Source Temporal Oral Pulse Rate 104 H 107 H 105 H Respiratory Rate 16 16 20 H Respiratory Effort Short of Breath Respiratory Depth Normal Respiratory Pattern Normal Blood Pressure 148/101 H 122/83 H 128/76 H Blood Pressure Mean 116 96 Pulse Ox 99 100 96 Oxygen Delivery Method Room Air Positive obese General Appearance ED: NAD; Negative for pallor Nutritional Appearance: obese HEENT Reports moist mucous membranes normocephalic and atraumatic Eyes PERRL and EOMs intact bilaterally Neck supple and no meningeal signs Resp normal respiratory effort and clear to auscultation bilaterally Cardio Rate: tachycardic Rhythm: regular rhythm GI non-tender and non-distended Palpation: soft Neuro oriented x3, CN's II-XII intact bilaterally and no sensory deficits noted Sensorium / Orientation: alert Motor Exam: strength 5/5 throughout Psych mental status grossly normal Skin General Skin Exam: Negative for jaundice or pallor MDM MDM MDM Narrative Medical decision making narrative: Patient presenting with known COVID-19. She is not hypoxic. Her respiratory rate is 16-20. Afebrile. Slightly tachycardic but not having chest pain. I obtained a chest x-ray which appears to have right lung base pneumonitis. The radiologist interprets this as pneumonitis versus pulmonary nodules versus artifact. Since the patient had COVID-19 currently I suspect it is pneumonitis. But since her vital signs are stable I do not believe he needs any other acute work-up. I did refer her for the monoclonal antibodies. Patient is counseled to monitor her O2 saturations at home. She is given return precautions. Impression: 1. COVID-19 pneumonitis Radiography Diagnostic Testing: Clinical Impression(s) from Imaging Studies Chest X-Ray 05/22/21 17:40 IMPRESSION: Nodular opacity in the right lung base could represent a focal pneumonitis versus pulmonary nodules versus chest wall artifact. Electronically Signed: Jeff Chopra MD ([place]) at 18:06 EST , Service support , Discharge Plan Triage Chief Complaint: Shortness of Breath ED Provider: Christ Levi Dx/Rx/DC Orders Instructions: Coronavirus Disease 2019 (COVID-19): Caring for Yourself or Others Prescriptions: New ondansetron 4 mg tablet,disintegrating 4 mg PO Q8H PRN PRN (Reason: Nausea) Qty: 20 RF: 0 Other Ambulatory Orders: COVID Outpatient Monoclonal Antibody Referral (Routine) Timeframe: 1 Day Facility: [facility] - Location: [facility] Ordered By: Dr. Christ Levi Primary Care Provider: Asif Riley Referrals: Asif Riley MD [Primary Care Provider] - Disposition Disposition: Home, Self Care Discharge Date/Time: 05/22/21 20:11
== END 2021-05-22 20:11 | disposition home or self-care (01) ==
LOC: ED 19:53
PROVIDERS: Emergency Provider Student in an Organized Health Care Education/Training Program; PCP Family Medicine
DX: U07.1 COVID-19 (principal); J12.82 Pneumonia due to coronavirus disease 2019; E66.9 Obesity, unspecified
CPT/HCPCS: 71045; 94760; 99284; A4216

== ENCOUNTER 2021-07-16 10:40 | Outpatient (CLI) | payer OTHER, MEDICAID, SELFPAY ==
[2021-07-20 18:08] LABS: Dilute Prothrombin Time (dPT) 33.3 sec (0.0-47.6); Dilute Russell Viper Venom 33.4 sec (0.0-47.0); PTT-LA 31.3 sec (0.0-51.9); Thrombin Time 16.5 sec (0.0-23.0); dPT Confirm Ratio 0.96 Ratio (0.00-1.34)
[2021-07-21 12:50] LABS: Anti-Cardiolipin Ab, IgA, Qn < 9 APL U/mL (0-11); Anti-Cardiolipin Ab, IgG, Qn < 9 GPL U/mL (0-14); Anti-Cardiolipin Ab, IgM, Qn 21 MPL U/mL (0-12); Beta-2-Glycoprotein I IgA <9 (0-25); Beta-2-Glycoprotein I IgG <9 (0-20); Beta-2-Glycoprotein I IgM <9 (0-32); Interpretation Comment: (.)
== END 2021-07-16 23:59 | disposition short-term general hospital (02) ==
LOC: PAVLAB 10:42
PROVIDERS: PCP Family Medicine; Referring Provider Obstetrics & Gynecology; Visit Provider Obstetrics & Gynecology
DX: N96 Recurrent pregnancy loss (principal)
CPT/HCPCS: 36415; 86146; 86147

== ENCOUNTER 2021-08-03 14:32 | Outpatient (CLI) | payer OTHER, MEDICAID, SELFPAY ==
[2021-08-03 16:44] LABS: hCG Titer Quant., Serum 4 mIU/mL (1-3)
== END 2021-08-03 23:59 | disposition home or self-care (01) ==
LOC: LAB 14:33
PROVIDERS: PCP Family Medicine; Visit Provider Obstetrics & Gynecology
DX: N91.2 Amenorrhea, unspecified (principal)
CPT/HCPCS: 36415; 84702

== ENCOUNTER 2021-09-04 17:16 | Outpatient (CLI) | payer OTHER, MEDICAID, SELFPAY ==
[2021-09-04 18:35] LABS: hCG Titer Quant., Serum 10 mIU/mL (1-3)
== END 2021-09-04 23:59 | disposition home or self-care (01) ==
LOC: LAB 17:17
PROVIDERS: PCP Family Medicine; Referring Provider Obstetrics & Gynecology; Visit Provider Obstetrics & Gynecology
DX: N92.6 Irregular menstruation, unspecified (principal)
CPT/HCPCS: 36415; 84702

== ENCOUNTER 2021-09-06 17:30 | Outpatient (CLI) | payer OTHER, MEDICAID, SELFPAY ==
[2021-09-06 18:20] LABS: hCG Titer Quant., Serum 10 mIU/mL (1-3)
== END 2021-09-06 23:59 | disposition home or self-care (01) ==
LOC: LAB 17:32
PROVIDERS: PCP Family Medicine; Referring Provider Obstetrics & Gynecology; Visit Provider Obstetrics & Gynecology
DX: N92.6 Irregular menstruation, unspecified (principal)
CPT/HCPCS: 36415; 84702

== ENCOUNTER 2021-09-08 19:44 | Outpatient (CLI) | payer OTHER, MEDICAID, SELFPAY ==
[2021-09-08 20:41] LABS: hCG Titer Quant., Serum 4 mIU/mL (1-3)
== END 2021-09-08 23:59 | disposition home or self-care (01) ==
LOC: LAB 19:46
PROVIDERS: PCP Family Medicine; Visit Provider Obstetrics & Gynecology
DX: N96 Recurrent pregnancy loss (principal)
CPT/HCPCS: 36415; 84702

== ENCOUNTER 2023-04-30 19:40 | Emergency (ER) | payer BC, MEDICAID, SELFPAY ==
[2023-04-30 19:40] VITALS: BP 146/110; PULSE 60; RESP 16; TEMP 36.6; O2SAT 100; BMI 40.2
--- NOTE | 2023-04-30 19:57 | ED.VIS.DENTA ---
HPI History of Present Illness Chief Complaint: Dental Informant: patient and parent Narrative Narrative: Patient presents with dental pain. Patient had right wisdom teeth and molars removed on Tuesday. For total teeth. She is on Decadron, Augmentin, hydrocodone for pain. She states it is still very painful. Sometimes she gets nauseated taking all the meds on an empty stomach which makes it hard to take. But she has not vomited. She is able to eat and drink but her appetite is down. She is just concerned that something may be going wrong because it is just sore on the right side. No trouble breathing. No fevers or chills. She was also concerned if there may be a dislocated jaw or something causing this. 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 Home Medications acetaminophen 325 mg capsule (Tylenol) 325 mg PO ONCE PRN 02/09/22 [History Last Taken Unknown] norethindrone (contraceptive) 0.35 mg tablet (Maddie) 0.35 mg PO QDAY #84 tabs 05/26/22 [Rx Last Taken Unknown] bupropion HCl 300 mg 24 hr tablet, extended release See Rx Instructions .Route .COMPLEX #30 tabs 02/23/23 [Rx Last Taken Unknown] ondansetron 4 mg disintegrating tablet 4 mg PO Q8H PRN PRN Nausea #10 tabs 04/30/23 [Rx Last Taken Unknown] oxycodone-acetaminophen 5 mg-325 mg tablet 1 tab PO Q6H PRN PRN Pain 3 days #12 TABLETS 04/30/23 [Rx Last Taken Unknown] Allergy/AdvReac Type Severity Reaction Status Date / Time No Known Allergies Allergy Verified 04/30/23 19:42 Family History Grandmother Kidney disease Brother Charcot Franchesca Tooth muscular atrophy Surgical History S/P breast biopsy, bilateral S/P Social History adopted: No household members: spouse and children number of children: 2 current occupational status: employed current occupation: Receptionist Telephone Operator @ [employer] pets and animals: Yes (avoid litter box) pets and animals: cat(s) Smoking Status: Never smoker alcohol intake: current details: not while substance use type: does not use seatbelt use: always do you feel safe at home: Yes additional social history: Javier [facility] ED Constitutional Constitutional ED: Denies chills, fever(s), subjective or sweats Eyes Eyes: Denies blurry vision ENT ENT ED: Reports other Details: See history of present illness. ; Denies ear pain, rhinorrhea or sore throat Cardiovascular Cardiovascular: Denies chest pain Respiratory/Chest Respiratory/Chest: Denies cough or dyspnea Gastrointestinal Gastrointestinal: Reports nausea; Denies abdominal pain or vomiting Musculoskeletal Musculoskeletal: Denies arthralgias Integumentary Denies rash Neurologic Neurologic: Denies headache(s) Psychiatric Psychiatric: Reports anxiety Hematologic/Lymphatic Hematologic/Lymphatic: Denies easy bleeding, easy bruising or lymphadenopathy Allergic/Immunologic Allergic/Immunologic ED: Denies urticaria EXAM Physical Exam Narrative Exam Narrative: Neuro: Patient is awake alert no acute distress. HEENT: No external swelling is seen. Intraoral exam shows that her voice is normal. Swallowing is normal. No swelling or indication of Ludewig's angina. The extraction sites actually look good. They look like they are healing. I do not see signs of a dry socket which is what I was expecting. Nor do I see erythema or signs of infection. Neck shows no lymphadenopathy or swelling. Cardiorespiratory shows normal pulse and heart rate. Lungs are clear. Saturations are normal at 100% on room air showing no hypoxia. Abdomen is nontender. Extremities show no pallor or rash. Const Vital Signs: 04/30/23 19:40 Temperature 97.8 F Temperature Source Temporal Pulse Rate 60 Respiratory Rate 16 Blood Pressure 146/110 H Blood Pressure Mean 122 Pulse Ox 100 Oxygen Delivery Method Room Air MDM MDM MDM Narrative Medical decision making narrative: We discussed with the patient that she is on very appropriate medicines. I will write her for some oxycodone. Her online prescribing report shows only this prescription for pain meds. I think she is seeking pain relief not pain medication. She should continue the antibiotics and Decadron. I will also write for some Zofran to help with the nausea. We discussed also giving her some meds here. We did agree to give some morphine Toradol and Zofran here to see if we can knock down the pain a bit and then her meds will hopefully keep it better. All questions were answered. We discussed reasons to return. Discharge Plan Triage Chief Complaint: Dental ED Provider: Korey Castellano Dx/Rx/DC Orders Clinical Impression: Post-operative pain, Pain, dental Instructions: ED Dental Pain Prescriptions: New oxycodone-acetaminophen [oxycodone-acetaminophen] 5-325 mg tablet 1 tab PO Q6H PRN PRN (Reason: Pain) 3 Days Qty: 12 0RF ondansetron [ondansetron] 4 mg tablet,disintegrating 4 mg PO Q8H PRN PRN (Reason: Nausea) Qty: 10 0RF No Action acetaminophen [Tylenol] 325 mg capsule 325 mg PO ONCE PRN norethindrone (contraceptive) [Maddie] 0.35 mg tablet 0.35 mg PO QDAY Qty: 84 3RF Rx Instructions: start day 1 of menstrual cycle bupropion HCl 300 mg tablet extended release 24 hr See Rx Instructions .ROUTE .COMPLEX Qty: 30 6RF Dose Instruction: take 1 tablet by mouth every morning Rx Instructions: take 1 tablet by mouth every morning Primary Care Provider: Char Pan Referrals: Asif Riley MD [Non-Staff] - Activity Restrictions/Additional Instructions: Follow-up with your dentist early in the week for recheck. Disposition Disposition: Home, Self Care Discharge Date/Time: 04/30/23 20:44
[2023-04-30] MEDS: Ketorolac 60 MG/2 ML Vial IM (20:35)
[2023-04-30] MEDS: Ondansetron ODT 4 MG Tablet PO (20:35)
[2023-04-30] MEDS: Morphine 4 MG/ML Syringe IM (20:36)
== END 2023-04-30 20:44 | disposition home or self-care (01) ==
LOC: ED 20:09
PROVIDERS: Emergency Provider Emergency Medicine; PCP Internal Medicine; Visit Provider Emergency Medicine
DX: G89.18 Other acute postprocedural pain (principal); K08.89 Other specified disorders of teeth and supporting structures; F41.9 Anxiety disorder, unspecified
CPT/HCPCS: 96372; 99282

== ENCOUNTER → 2023-10-13 | Outpatient (CLI) | payer BC, MEDICAID, SELFPAY ==
--- NOTE | 2023-10-13 14:27 | US_ITS ---
INDICATION: Pelvic Pain EXAMINATION: Ultrasound US Pelvis Non OB Complete With Transvaginal Imaging TECHNIQUE: Transabdominal and transvaginal pelvic ultrasound was performed. Grayscale, spectral waveform, and color flow Doppler evaluation of the adnexa. COMPARISON: FINDINGS: UTERUS: Anteverted. The uterus measures 9.2 x 5.5 x 4.3 cm. There is no uterine mass. The endometrial stripe measures 4.9 mm in AP diameter which is slightly heterogeneous. RIGHT OVARY: 2.6 x 1.9 x 1.9 cm. Non-enlarged, normal echogenicity. There is normal arterial inflow and venous outflow present in the right ovary. LEFT OVARY: 2.8 x 2.1 x 2.1 cm. Non-enlarged, normal echogenicity. There is normal arterial inflow and venous outflow present in the left ovary. FREE FLUID: None. US/Pelvic w/ Transvaginal IMPRESSION: No acute pathology. Electronically Signed: Alberto Pham DO at 19:52 EDT Reading Location ID and State: [facility] / [place] Tel [phone], Service support ,
== END | disposition home or self-care (01) ==
LOC: US 14:25
PROVIDERS: PCP Internal Medicine; Referring Provider Nurse Practitioner Family; Visit Provider Nurse Practitioner Family
DX: R10.2 Pelvic and perineal pain (principal)
CPT/HCPCS: 76830; 76856

== ENCOUNTER → 2024-05-30 | Outpatient (CLI) | payer BC, SELFPAY ==
[2024-06-07 14:33] LABS: HPV Reflexed? NOT INDICATED
== END | disposition home or self-care (01) ==
PROVIDERS: PCP Internal Medicine; Referring Provider Nurse Practitioner Family; Visit Provider Nurse Practitioner Family
DX: Z12.4 Encounter for screening for malignant neoplasm of cervix (principal); N89.8 Other specified noninflammatory disorders of vagina
CPT/HCPCS: 87070; 87205; 88175; G0145

== ENCOUNTER 2024-09-01 14:19 | Emergency (ER) | payer BC, SELFPAY ==
[2024-09-01 14:20] VITALS: BP 133/96; PULSE 115; RESP 18; TEMP 36.4; O2SAT 98; BMI 43.4
[2024-09-01 14:21] VITALS: BP 138/78; PULSE 89; RESP 22; TEMP 36.8; O2SAT 98
[2024-09-01 14:27] VITALS: O2SAT 98
--- NOTE | 2024-09-01 14:37 | RAD_ITS ---
PROCEDURE: CHEST PA AND LATERAL REASON FOR EXAM: COUGH TECHNIQUE: Two views of the chest COMPARISON: 05/22/2021 FINDINGS: Cardiomediastinal silhouette is within normal limits. Lungs are clear. No sizable pneumothorax. RAD/Chest PA and Lateral IMPRESSION: No acute airspace abnormality. Reading Location: [facility]
--- NOTE | 2024-09-01 14:38 | EDS_ITS ---
HPI HPI - URI History of Present Illness Chief Complaint: Cough Informant: patient Onset/Context/Timing Onset: Weeks (1) Context: Gradual Onset Timing: Continuous Quality: Heaviness Location: Chest Worsened by: - (Nothing) Relieved by: - (Inhalers) Associated Symptoms Associated Symptoms: Positive for Shortness of Breath and Productive Cough (Green sputum); Negative for Nasal Congestion, Headache, Sinus Pressure, Myalgias, Nausea, Vomiting, Diarrhea, Chest Pain, Nonproductive cough or Hemoptysis Narrative Narrative: Patient presents with cough and chest heaviness that has been getting worse over the past week. Patient states she coughs up some green sputum in the morning. Patient states she has been using her inhalers which have been helping slightly. Patient states she feels short of breath. Patient states she went to the urgent care today and the nurse practitioner there referred to the emergency department because they do not have capabilities for x-rays. Patient states her pain does radiate into her back. Patient denies any fevers or chills ROS ROS ED Constitutional Constitutional ED: Denies chills or fever(s) Eyes Eyes: Denies blurry vision or change in vision ENT ENT ED: Denies rhinorrhea or sore throat Cardiovascular Cardiovascular: Denies chest pain or palpitations Respiratory/Chest Respiratory/Chest: Reports cough and dyspnea Gastrointestinal Gastrointestinal: Denies nausea or vomiting Genitourinary Genitourinary ED: Denies dysuria or hematuria Musculoskeletal Musculoskeletal: Reports back pain; Denies neck pain Integumentary Denies abscess or rash Neurologic Neurologic: Reports headache(s); Denies weakness Allergic/Immunologic Allergic/Immunologic ED: Denies mouth swelling or urticaria [facility] Medical History Antiphospholipid antibody positive History of recurrent miscarriages Home Medications ?Medication ?Instructions ?Recorded ?Last Taken ?Type acetaminophen 325 mg capsule 325 mg PO ONCE PRN Unknown History (Tylenol) bupropion HCl 300 mg 24 hr tablet, See Rx Instructions .Route 02/23/23 Unknown Rx extended release .COMPLEX #30 tabs albuterol sulfate 90 mcg/actuation 1 inh inhalation Q4 -6H PRN 10/05/23 Unknown History breath activated powder inhaler fluticasone 100 mcg-salmeterol 50 1 inh inhalation BID 10/05/23 Unknown History mcg/dose blistr powdr for inhalation (Advair Diskus) trazodone 50 mg tablet 50 mg PO DAILY 10/05/23 Unkn own History fluconazole 150 mg tablet 150 mg PO Q3D 2 doses #2 tab s 05/31/24 Unknown Rx Allergy/AdvReac Type Severity Reaction Status Date / Time No Known Allergies Allergy Verified 09/01/24 14:20 Family History Grandmother Kidney disease Brother Charcot Franchesca Tooth muscular atrophy Surgical History S/P breast biopsy, bilateral S/P Social History adopted: No household members: spouse and children number of children: 2 current occupational status: employed current occupation: Production Expediter @ [employer] pets and animals: Yes (avoid litter box) pets and animals: cat(s) Smoking Status: Never smoker alcohol intake: current details: not while substance use type: does not use seatbelt use: always do you feel safe at home: Yes additional social history: Javier EXAM Physical Exam Const Vital Signs: 09/01/24 14:20 09/01/24 14:27 09/01/24 15:04 Temperature 97.5 F L Temperature Source Temporal Pulse Rate 115 H Respiratory Rate 18 12 Respiratory Effort Normal Non-Labored Respiratory Depth Normal Respiratory Pattern Normal Normal Blood Pressure 133/96 H Blood Pressure Mean 108 Pulse Ox 98 Oxygen Delivery Method Room Air Positive well nourished and well developed General Appearance ED: well developed and NAD HEENT Reports moist mucous membranes Neck supple and no JVD Resp normal respiratory effort Auscultation: diminished lung sounds diffuse Cardio Rate: regular rate Rhythm: regular rhythm GI non-tender and non-distended Palpation: soft Neuro oriented x3, CN's II-XII intact bilaterally and no sensory deficits noted Sensorium / Orientation: alert Motor Exam: strength 5/5 throughout Psych mental status grossly normal MDM MDM MDM Narrative Medical decision making narrative: Differential diagnose includes pneumonia, bronchitis, and viral upper respiratory infection. Chest x-ray will be obtained to assess for pneumonia and bronchitis. Since the patient symptoms have been going on for a week, I did not feel that COVID-19, influenza, or RSV testing is necessary since the treatment will not change. Radiography Chest X-Ray - ED: 2 View, Read by ED Physician, Read by Radiologist and No Acute Disease Diagnostic Testing: Clinical Impression(s) from Imaging Studies Chest X-Ray 09/01/24 14:37 IMPRESSION: No acute airspace abnormality. [facility] and lateral chest x-ray was obtained. There are 2 views. On my independent interpretation, lung genao are clear. There is normal cardiac silhouette. Bony thorax is normal. There is no acute process noted. Radiologist also interpreted the x-ray and agrees. Treatment and Re-Evaluation Narrative: Patient was given a DuoNeb aerosol here. Patient was feeling better on reevaluation. Patient was advised of her findings. Patient was instructed to continue her inhalers as prescribed. Patient was instructed take Tylenol or ibuprofen as needed for any fevers. Patient was instructed to drink plenty of fluids. Patient was instructed to follow-up with her primary care physician in 5 to 7 days. Patient understood and was agreeable with the plan. All questions were answered. Discharge Plan Triage Chief Complaint: Cough ED Provider: Ty Madrid Dx/Rx/DC Orders Clinical Impression: Viral upper respiratory infection, Asthma Instructions: ED URI, Viral, No Abx (Adult) Prescriptions: No Action acetaminophen [Tylenol] 325 mg capsule 325 mg PO ONCE PRN trazodone 50 mg tablet 50 mg PO DAILY albuterol sulfate 90 mcg/actuation aerosol powdr breath activated 1 inh inhalation Q4-6H PRN fluticasone propion-salmeterol [Advair Diskus] 100-50 mcg/dose blister with device 1 inh inhalation BID bupropion HCl 300 mg tablet extended release 24 hr See Rx Instructions .ROUTE .COMPLEX Qty: 30 6RF Dose Instruction: take 1 tablet by mouth every morning Rx Instructions: take 1 tablet by mouth every morning fluconazole 150 mg tablet 150 mg PO Q3D Qty: 2 0RF Rx Instructions: may repeat second dose 72 hrs after first dose if symptoms persist Primary Care Provider: Char Pan Referrals: Char Pan MD [Primary Care Provider] - 5-7 Days Print Language: Bahamian Disposition Disposition: Home, Self Care
[2024-09-01] MEDS: Ipratropium/Albuterol Sulfate 3 ML AMPUL.NEB INHALATION (15:03)
[2024-09-01 15:04] VITALS: RESP 12
== END 2024-09-01 15:45 | disposition home or self-care (01) ==
PROVIDERS: Emergency Provider Emergency Medicine; PCP Internal Medicine; Referring Provider Emergency Medicine; Visit Provider Emergency Medicine
DX: J06.9 Acute upper respiratory infection, unspecified (principal); J45.909 Unspecified asthma, uncomplicated
CPT/HCPCS: 71046; 94640; 99282

== ENCOUNTER → 2024-11-23 | Outpatient (CLI) | payer BC, SELFPAY ==
[2024-11-23 12:04] LABS: hCG Titer Quant., Serum < 1 mIU/mL (<9 non-preg)
== END | disposition home or self-care (01) ==
LOC: LAB 10:55
PROVIDERS: PCP Internal Medicine; Referring Provider Advanced Practice Midwife; Visit Provider Advanced Practice Midwife
DX: N91.2 Amenorrhea, unspecified (principal)
CPT/HCPCS: 36415; 84702

== ENCOUNTER → 2025-02-19 | Outpatient (CLI) | payer OTHER, BC, SELFPAY ==
--- NOTE | 2025-02-19 08:53 | US_ITS ---
PROCEDURE: BREAST LIMITED UNILATERAL 02/19/2025 REASON FOR EXAM: F, Age 29 y/o , RIGHT BREAST LUMP COMPARISON: Prior mammogram done earlier in the day.. TECHNIQUE: Procedure Code: USBRSTLIMIT Modality: US Procedure: BREAST LIMITED UNILATERAL FINDINGS: The palpable/mammographic abnormality corresponds to a 3.7 cm 4.3 cm by 2 cm well-defined hypoechoic solid nodule at the 6 o'clock position of the breast at 7 cm from the nipple. This most likely represents a fibroadenoma. Biopsy recommended. US/Breast Limited Unilateral IMPRESSION: Palpable lump corresponds to a 3.7 cm 4.3 cm x 2 cm well-defined hypoechoic melissa id nodule at the 6 o'clock position of the breast at 7 cm from the nipple. Biopsy recommended. BI-RADS 4: SUSPICIOUS RECOMMENDATION: Biopsy Recommended Reading Location: [place] [id number]
--- NOTE | 2025-02-19 09:00 | BI_ITS ---
EXAM: DIAG MAMM W/CAD, BILAT 02/19/2025 CLINICAL HISTORY: F, Age 29 y/o , BREAST LUMP TECHNIQUE: Procedure Code: [id number] Modality: MG Procedure: DIAG MAMM W/CAD, BILAT. COMPARISON: No prior examination available for comparison. History of prior bilateral resection of fibroadenomas. FINDINGS: TISSUE DENSITY: The breasts are heterogeneously dense, which may obscure small masses. Bilateral Breast Mammographic Findings: There is a 4.7 cm by 3.9 cm well-defined nodular density in the central inferior posterior aspect of the right breast. This corresponds with the palpable abnormality. There is also evidence of a 1.6 cm by 1.1 cm well-defined nodule in the upper central portion of the left breast. Targeted sonographic correlation recommended. BI/DIAG MAMM W/CAD, BILAT IMPRESSION: Bilateral breast nodules corresponding to the palpable lumps. Targeted sonographic correlation recommended. OVERALL FINAL ASSESSMENT BI-RADS 0: INCOMPLETE - NEED ADDITIONAL IMAGING EVALUATION. RECOMMENDATION: Ultrasound Recommended A letter with findings and recommendations will be mailed to the patient. Reading Location: [place] [address]
--- NOTE | 2025-02-19 10:09 | US_ITS ---
PROCEDURE: BREAST LIMITED UNILATERAL 02/19/2025 REASON FOR EXAM: F, Age 29 y/o , LEFT BREAST ABNORMAL MAMMOGRAM COMPARISON: Prior mammogram done earlier in the day.. TECHNIQUE: Procedure Code: USBRSTLIMIT Modality: US Procedure: BREAST LIMITED UNILATERAL FINDINGS: There is a 1.4 cm x 1.5 cm x 1.1 cm well-defined hypoechoic nodule at the 1 o'clock position of the breast at 7 cm from the nipple. This most likely represents a fibroadenoma. Biopsy recommended. US/Breast Limited Unilateral IMPRESSION: 1.4 cm 1.5 cm 1.1 cm well-defined hypoechoic nodule at the 1 o'clock position o f the breast at 7 cm from the nipple. Biopsy recommended. BI-RADS 4: SUSPICIOUS RECOMMENDATION: Biopsy Recommended Reading Location: [place] [address]
== END | disposition home or self-care (01) ==
LOC: OPBI 08:52
PROVIDERS: PCP Internal Medicine; Referring Provider Obstetrics & Gynecology; Visit Provider Obstetrics & Gynecology
DX: R92.8 Other abnormal and inconclusive findings on diagnostic imaging of breast (principal); N63.10 Unspecified lump in the right breast, unspecified quadrant
CPT/HCPCS: 76642; 77062; 77066; G0279

== ENCOUNTER 2025-04-17 11:35 | Outpatient (RCR) | payer OTHER, BC, SELFPAY | END 2025-04-19 23:59 | LOC: NS 11:35 | PROVIDERS: PCP Internal Medicine; Referring Provider Internal Medicine; Visit Provider Internal Medicine | DX: Z71.3 Dietary counseling and surveillance (principal); E66.01 Morbid (severe) obesity due to excess calories; Z68.41 Body mass index [BMI] 40.0-44.9, adult | CPT/HCPCS: 97802 ==

== ENCOUNTER 2025-04-18 05:52 | Day surgery (SDC) | payer OTHER, BC, SELFPAY ==
[2025-04-18] VITALS (11 sets, daily range): BP systolic 119–136; BP diastolic 71–90; PULSE 67–98; RESP 16; TEMP 36.1–36.7; O2SAT 93–100; BMI 42.7
[2025-04-18 06:18] LABS: Internal QC Validated? YES +Cl - CLEAR BKGD; Pregnancy, Urine Negative Negative; Record Kit Lot#,Urine Preg 0000980607
[2025-04-18] MEDS: Lactated Ringers 1,000 ML 15 ML IV (06:32)
--- NOTE | 2025-04-18 06:46 | PCM.PRE.AN2 ---
ASA Classification* ASA Classification ASA Classification: 3 Assessment & Plan Anesthesia* Anesthesia Assessment Anesthesia Assessment: Discussed sedation and/or anesthesia options, risks, benefits, and alternatives with patient/parents/legal guardian/POA. Questions invited. The patient/parents/legal guardian/POA seems to understand and agrees to proceed with anesthesia plan. Reviewed the physical assessment, medical history, allergy history and patient home medications list prior to surgery/procedure/anesthetic and documented any changes. Performed airway and anesthesia risk assessments. Anesthesia Type Anesthesia Type: General History Source History Obtained from:: Patient and Chart Anesthesia Focused Assessment* Temperature: 97.8 F Pulse Rate: 81 Blood Pressure: 132/86 Respiratory Rate: 16 Pulse Ox: 100 Oxygen Delivery Method: Room Air Airway Assessment Mouth opens: >3 cm Mallampati Score: III Teeth Condition: Missing (Patient is has several missing molars. The rest are tight.) Neck Range of motion (ROM): Full ROM Labs Anesthesia Preop lab: CBC WBC, (4.4-11.0) 11.0 K/mm3 01/09/21, 17:10 RBC, (4.2-5.4) 4.47 M/mm3 01/09/21, 17:10 Hgb, (12.0-15.0) 12.4 g/dL 01/09/21, 17:10 Hct, (37-47) 40.1 % 01/09/21, 17:10 Plt Count, (150-450) 505 K/mm3 H 01/09/21, 17:10 CHEMISTRY Potassium, (3.5-5.1) 4.1 mmol/L 04/20/16, 11:20 Sodium, (136-145) 140 mmol/L 04/20/16, 11:20 BUN, (7-18) 14 mg/dL 04/20/16, 11:20 Creatinine, (0.55-1.20) 0.81 mg/dL 04/20/16, 11:20 Glucose, (70-110) 62 mg/dL L 04/20/16, 11:20 POC Glucose, (70-110) 57 mg/dL L 12/03/13, 12:19 COAG PT, (11.7-14.9) 12.9 SECONDS 04/05/16, 12:50 HCG, Quant, (<9 non-preg) < 1 mIU/mL 11/23/24, 10:57 Urine Test Negative Negative Today, 06:00 Pre-Assessment Diagnosis/Proposed Procedure Planned Operative Procedure(s): (B) Ultrasound wire bilteral Excision, Breast Mass or Biopsy Anesthesia History Anesthesia History - set up mechanic crown assembly machine: Anesthesia History - set up mechanic crown assembly machine Hx Hospitalization No 04/04/25 11:45 Any Problems With Anesthesia Yes: EPIDURAL-LEFT EYE 04/04/25 11:45 DROOPY, LEFT SIDE NUMB Cholinesterase deficiency No 04/04/25 11:45 You/Your Family Experience No 04/04/25 11:45 fever (hyperthermia) with Relationship Recent Exposure to Contagious No 04/18/25 06:23 Disease Does patient have nerve No 04/04/25 11:45 stimulator Patient instructed to have device shut off --Does patient have Pacemaker No 04/18/25 06:23 or ICD? When Was Last Pacemaker Check QUESTION #4 FULL TEXT: You/Your Family Experience fever (hyperthermia) with Anesthesia Last Oral Intake Last Oral intake: Last Oral Intake NPO since 22:00 04/18/25 06:23 Meds taken in AM with sips of water? Meds patient instructed to take am of surgery PONV PONV - set up mechanic crown assembly machine: PONV - set up mechanic crown assembly machine Female Yes 04/04/25 11:45 HX of Motion Sickness No 04/04/25 11:45 HX of N/V After Surgery Yes 04/04/25 11:45 Non-Smoker Yes 04/04/25 11:45 Duration of Surgery greater No 04/04/25 11:45 than 60 minutes Number of Risk Factors 3 04/04/25 11:45 PONV Score Moderate Risk 04/04/25 11:45 Height & Weight Height & Weight: Anesthesia: Height & Weight Height 5 ft 3 in 04/18/25 06:23 Weight: 109.316 kg 04/18/25 06:23 Body Mass Index (BMI) 42.7 04/18/25 06:23 Respiratory Assessment Respiratory Assessment - set up mechanic crown assembly machine: Respiratory Tract Infection Hx - set up mechanic crown assembly machine Hx Respiratory Tract Infection No 04/04/25 11:45 STOP Sleep Apnea STOP Sleep Apnea - set up mechanic crown assembly machine: STOP Sleep Apnea - set up mechanic crown assembly machine Hx Hypertension No 04/04/25 11:45 Hx Sleep Apnea No 04/04/25 11:45 CPAP BIPAP Do you snore loudly (louder No 04/04/25 11:45 than talking or can be heard Do you often feel tired/ No 04/04/25 11:45 fatigued/ sleepy during daytime? Has anyone observed you stop No 04/04/25 11:45 breathing during sleep? STOP Results Negative 04/04/25 11:45 QUESTION #5 FULL TEXT : Do you snore loudly (louder than talking or can be heard through closed doors)? Tobacco Use History Tobacco Use History - set up mechanic crown assembly machine: Tobacco Use History - set up mechanic crown assembly machine Tobacco Use Smoking Status Never smoker 04/04/25 11:45 Hx Tobacco Use No 04/04/25 11:45 Years Smoking Packs Smoked per Day Smoking Cessation Date was within the last 15 years Hx Smoking Cessation Date Hx Smoking Cessation Counseling Hematologic Medial History Hematologic Hx - set up mechanic crown assembly machine: Hematologic Medical Hx - development spec Hx of Blood Transfusion No 04/04/25 11:45 Hx of Transfusion in last 3 No 04/04/25 11:45 Months Date of Last Transfusion (if within last 3 months) Ever experience any problems No 04/04/25 11:45 with transfusion(s)? Specify any problems Hx of Preganancy in last 3 No 04/04/25 11:45 Months Nurse Filling Out Transfusion VCHRISTIN 04/04/25 11:45 & Questions: Date: 04/04/25 04/04/25 11:45 Time: 11:47 04/04/25 11:45 Patient unable to answer at this time (ie. confused, unrespo /Reproduction History /Reproductive History - set up mechanic crown assembly machine: /Reproductive Hx- set up mechanic crown assembly machine Hx Now No 04/04/25 11:45 Gestational Age (in weeks): EDC: Hx Hx Para Hx Section SAB No 04/04/25 11:45 Active Medications Active Medications: Current Medications Generic Name Dose Route Start Last Admin Trade Name Freq PRN Reason Stop Dose Admin Cefazolin Sodium 2 gm/ Sodium 110 mls @ 200 mls/hr 04/18/25 07:30 Chloride IV 04/18/25 08:02 INTRAOP ONE Lactated Ringer's 1,000 mls @ 15 mls/hr 04/18/25 06:15 04/18/25 06:32 IV 15 mls/hr .Q48H AZEB Administration PFSH Medical History Wears contact lenses Wears glasses Syncope Non-smoker Asthma Shortness of breath on exertion Abnormal ultrasound of breast Abnormal mammogram Antiphospholipid antibody positive History of recurrent miscarriages Home Medications ?Medication ?Instructions ?Recorded ?Last Taken ?Type albuterol sulfate 90 mcg/actuation 1 inh inhalation Q4-6H PRN 10/05/23 Unknown History breath activated powder inhaler shortness of breath or wheezing fluticasone 100 mcg-salmeterol 50 1 inh inhalation BID 10/05/23 Unknown History mcg/dose blistr powdr for inhalation (Advair Diskus) trazodone 50 mg tablet 50 mg PO DAILY 10/05/23 04/17/25 History Allergy/AdvReac Type Severity Reaction Status Date / Time No Known Allergies Allergy Verified 04/18/25 06:23 Family History Grandmother Kidney disease Brother Charcot Franchesca Tooth muscular atrophy Surgical History S/P breast biopsy, bilateral S/P Social History adopted: No household members: spouse and children number of children: 2 current occupational status: employed current occupation: Wood Shop Teacher @ [employer] pets and animals: Yes (avoid litter box) pets and animals: cat(s) Smoking Status: Never smoker alcohol intake: current details: not while substance use type: does not use seatbelt use: always do you feel safe at home: Yes additional social history: Javier Review of Systems (Anesthesia) ROS Narrative System reviewed and no additional complaints, except as documented. Physical Exam Resp clear to auscultation bilaterally
--- NOTE | 2025-04-18 07:30 | BRBX_PTH ---
PATIENT: YAYA TOBIN [place] [facility] [id number] AGE/SX: 30/F ROOM: RE04/18/[address]: Dr. Gwen Macedo MD : 1995 BED: DIS: 04/18/2025 SPEC #: [id number] RECD: 04/18/25 09:16 STATUS: CIARRA REQ #: [id number] ARMANDO: 04/18/25 07:[address]: Gwen Macedo DEPT: SURGICAL PATHOLOGY RECD BY: Mu Coyle ENTERED: 04/18/25 12:23 SP TYPE: BREAST BX OTHR DR: Dr. Char Pan MD Tissues: A - Left breast, NOS B - Right breast, NOS Procedures: Surgery Specimen Level V HEADER OPERATION: Ultrasound wire bilateral excision, breast mass with biopsy PRE-OP DIAGNOSIS: Abnormal ultrasound of breast, abnormal mammogram TISSUE SUBMITTED: A- Left breast mass, B- Right breast mass *long suture- lateral, short suture- superior* MICROSCOPIC DIAGNOSIS A. Left breast mass, ultrasound wire localization, excision: - Fibroadenoma (1.6 cm). - Background breast parenchyma with dense fibrosis and focal fibroadenomatoid change. - Negative for malignancy. B. Right breast mass, ultrasound wire localization, excision: - Fibroadenoma (4.3 cm). - Negative for malignancy. MICROSCOPIC DESCRIPTION Slides are reviewed. GROSS DESCRIPTION A. Received fresh labeled with the patient's name and date of . Designated as left breast mass is a 5.5 x 4.3 x 3.6 cm focally disrupted excisional biopsy with an exposed localization wire on the lateral aspect. There is a short suture designated as superior and a long suture designated as lateral. Skin is not present. The specimen is inked as follows: Superior: RedInferior: BlueMedial: YellowLateral: OrangeAnterior: GreenPosterior: Black The specimen is serially sectioned from lateral to medial (into 10 slices) revealing a 1.6 x 1.5 x 1.4 cm pink-white, rubbery mass in slices #8-#10; the mass is located the following distances from each margin: Anterior: 0.3 cmInferior: 0.7 cmMedial: <0.1 cmLateral: >2 cmPosterior: <0.1 cmSuperior: <0.1 cm Review of postoperative imaging confirms the presence of a localization wire. The remainder of the cut surfaces are fibrofatty (80% fibrotic, 20% fatty) [employer] Project Manager sections are submitted, sequentially from slice #1 to slice #10, as follows: A1: Slice #1, lateral, perpendicular (orange)A2: Slice #3, fibrotic parenchyma with inferior/posterior/anterior (blue/black/green)A3: Slice #5: Fibrotic parenchyma, no marginsA4: Slice #7, fibrotic parenchyma to superior/anterior (red/green)A5: Slice #8, mass to superior/anterior (red/green)A6: Slice #8, mass to superior/posterior/medial (red/black/yellow)A7: Slice #9, mass to superior/posterior/anterior/medial (red/black/green/yellow)A8: Mass to medial/superior/anterior, perpendicular (yellow/red/green) Cold ischemic time: 12 minutesFormalin fixation time: 10 hours, 32 minutes B. Received fresh labeled with the patient's name and date of . Designated as right breast mass is a is a 4.3 x 4.3 x 2.0 cm hurtado-pink, firm nodule with minimal attached fatty tissue and an exposed, localization wire on the inferior aspect. There is a short suture designated as superior, and a long suture designated as anterior lateral. Skin is not present. The specimen is inked as follows: Superior: RedInferior: BlueMedial: YellowLateral: OrangeAnterior: GreenPosterior: Black The specimen is serially sectioned from superior to inferior (into 7 slices) revealing pink-white, firm lesional cut surfaces with minimal surrounding parenchyma. A biopsy clip is not identified within the mass. The mass grossly abuts all of the margins. Review of postoperative imaging confirms the presence of a localization wire. [employer] Project Manager sections are submitted, sequentially from slice #1 to #7, as follows: B1: Slice #1, mass to superior, perpendicular (red)B2: Slice #2, mass to superior/medial/anterior (red/yellow/greenB3: Slice #3, mass to lateral/superior/posterior/medial (orange/red/black/yellowB4: Slice #5, mass to medial/lateral/anterior (yellow/orange/greenB5: Slice #7, mass to inferior, perpendicular (blue) Cold ischemic time: 13 minutes Formalin fixation time: 10 hours, 12 minutes OR 04/18/2025 CPT:08410f9
--- NOTE | 2025-04-18 07:43 | PCM.HP.STD ---
HPI - General General Date of Service: 04/18/25 HPI Narrative YAYA TOBIN, is a 30 F who presents bilateral excisional ultrasound-guided wire localization breast biopsies. Patient denies any changes since office visit. ========= Office visit 02/26/2025 HPI HPI: 29-year-old female presents with her mom for abnormal mammogram and ultrasound bilateral breast. Patient states she noticed the right breast mass and about SeptemberOctober 2024 denies any pain denies any change in size. Mammogram was done which found a right and left breast mass ultrasound showed left breast 1.4 x 1.5 x 1.1 cm well-defined nodule 1:00 7 cm from the nipple most likely represents a fibroadenoma given a BI-RADS 4, right breast ultrasound showed 3.7 x 4.3 x 2 cm well-defined hypoechoic solid nodule at 6:00 7 cm from the nipple given a BI-RADS 4 as well. Patient denies any family history of breast cancer. Patient did previously have excisional biopsies for fibroadenoma [place] [address] Shin[address] [facility] Medical History Wears contact lenses Wears glasses Syncope Non-smoker Asthma Shortness of breath on exertion Abnormal ultrasound of breast Abnormal mammogram Antiphospholipid antibody positive History of recurrent miscarriages Home Medications ?Medication ?Instructions ?Recorded ?Last Taken ?Type albuterol sulfate 90 mcg/actuation 1 inh inhalation Q4-6H PRN 10/05/23 Unknown History breath activated powder inhaler shortness of breath or wheezing fluticasone 100 mcg-salmeterol 50 1 inh inhalation BID 10/05/23 Unknown History mcg/dose blistr powdr for inhalation (Advair Diskus) trazodone 50 mg tablet 50 mg PO DAILY 10/05/23 04/17/25 History Allergy/AdvReac Type Severity Reaction Status Date / Time No Known Allergies Allergy Verified 04/18/25 06:23 Family History Grandmother Kidney disease Brother Charcot Franchesca Tooth muscular atrophy Surgical History S/P breast biopsy, bilateral S/P Social History adopted: No household members: spouse and children number of children: 2 current occupational status: employed 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[employer] [facility] pets and animals: Yes (avoid litter box) pets and animals: cat(s) Smoking Status: Never smoker alcohol intake: current details: not while substance use type: does not use seatbelt use: always do you feel safe at home: Yes additional social history: Javier Vital Signs Vital Signs Vital Signs: 04/18/25 06:23 04/18/25 06:23 04/18/25 06:56 Temperature 97.8 F 97.8 F Temperature Source Temporal Pulse Rate 81 81 Respiratory Rate 16 16 Respiratory Pattern Normal Blood Pressure 132/86 H 132/86 H Blood Pressure Mean 101 Blood Pressure Source Manual Blood Pressure Position Sitting Blood Pressure Location Left Arm Pulse Ox 100 100 Oxygen Delivery Method Room Air Room Air Weight Weight: 241 lb Body Mass Index (BMI) 42.7 Physical Exam Const alert, oriented x3 and no apparent distress HEENT normocephalic and head/scalp atraumatic Resp normal respiratory effort Cardio regular rate GI soft to palpation and non-tender; Negative for non-distended Palpation: Negative for guarding Extremity no clubbing, cyanosis or edema Skin no rashes or lesions noted Neuro CN's II-XII intact bilaterally Psych mental status grossly normal Results Lab / Micro Data Labs: Laboratory Results - last 24 hr 04/18/25 06:00: Urine Test Negative Assessment & Plan Assessment/Plan (1) Abnormal ultrasound of breast: (2) Abnormal mammogram: PLAN: Plan Plan for excisional bilateral biopsies with ultrasound guided wire needle localization. Discussed risk including not limited to bleeding, infection, need for further surgery. Patient no further questions time. Gwen Macedo M.D. Pager: [phone] [facility] [address] [place] [address], [address] [place] [address] Office: [phone]
[2025-04-18] MEDS: Lactated Ringers 500 ML IV (07:45)
[2025-04-18] MEDS: Cefazolin 1 GM/5 ML Vial 2 GM IV (07:48)
[2025-04-18] MEDS: Lidocaine 1% (5 ml sdv) 5 ML Vial IV (07:51)
[2025-04-18] MEDS: DiphenhydrAMINE 50 MG/ML Syringe 25 MG IV (08:01)
--- NOTE | 2025-04-18 08:53 | BI_ITS ---
EXAM: BI/Breast Biopsy Specimen
[2025-04-18] MEDS: fentaNYL 100 MCG/2 ML Ampul 200 MCG IV (08:58)
--- NOTE | 2025-04-18 09:05 | OP.PCM_ITS ---
Operative Report (Standard)
--- NOTE | 2025-04-18 09:05 | PCM.OPRPT ---
Operative Report (Standard) Operative Information Date of Procedure: 04/18/25 Pre-Operative Diagnosis: Bilateral breast mass Post-Operative Diagnosis: Same Surgery/Procedure Performed: Bilateral ultrasound wire localization excisional breast biopsies digital business analyst: Yes Lead Customer Service Representative: Nellie Xiao Tasks completed by sales assistants and salespersons: Opening & closing Type of Anesthesia: General/Supplemental RN Documented Start/Stop Times: Operation Date: 04/18/25 07:30 Case Time Into Pre-Op 04/18/25 06:01 Out of Pre-Op 04/18/25 07:40 Anesthesia Start 04/18/25 07:45 Into Room 04/18/25 07:45 Procedure Start 04/18/25 08:07 Procedure End 04/18/25 09:28 Anesthesia End 04/18/25 09:36 Out of Room 04/18/25 09:36 Into Recovery 04/18/25 09:37 Out of Recovery 04/18/25 10:26 Into Phase II Recovery 04/18/25 10:27 Procedure Start Time: 08:07 Procedure Stop Time: 09:28 Select all DRAINS/GRAFTS/IMPLANTS that apply: None Special Medications: Ancef 2 g IV x 1 Estimated Blood Loss: 10 CC Specimen collected: Yes Description of specimen(s) removed: 1. Left breast mass 1:00 7 cm from the nipple, 2. Right breast mass 6:00 7 cm from nipple Description of surgery: Patient was brought to operating placed spine operating table. Timeout was completed verifying correct patient, procedure, site, positioning, special, prior began procedure. General anesthesia was induced. Patient's bilateral breasts were prepped draped in a sterile fashion. Both procedures were done similarly. Ultrasound guided needle localization with Kopan needle was completed with the wire just lateral to the breast mass. A curvilinear on the left, radial on the right incision were planned in such a way as to minimize the amount of dissection to reach the mass. Flaps were raised in the location of the wire confirmed. The wire was delivered into the wound. 2 silk [id number] stay suture was placed around the wire and used for traction. Dissection was then taken down circumferentially with electrocautery, taking care to include the entire localization needle and wide margin of grossly normal tissue. The specimen and entire localizing wire were removed. The specimen was oriented and sent to radiology. Confirmation was received that the entire target lesion/wire had been resected. The cavity was irrigated. Hemostasis was obtained with electrocautery. The breast incision was closed with interrupted sutures of 3-0 Vicryl and subcuticular sutures of 4-0 Monocryl. No attempt was made to close the space. A dressing of fluff gauze and supportive bra placed. The patient tolerated procedure well was taken to the postanesthesia care in stable condition. Surgical Findings: See operative note Complications Complications: No
--- NOTE | 2025-04-18 09:08 | BI_ITS ---
EXAM: BI/Breast Biopsy Specimen
--- NOTE | 2025-04-18 09:09 | DCINST_ITS ---
Discharge Instructions
--- NOTE | 2025-04-18 09:09 | EX.PCM.DISCH ---
Discharge Instructions Diet Discharge Diet: No restrictions Activity Discharge Activity: May Not Drive (for 2-3 days or while taking narcotic pain meds.) May shower in (days): 1 Lifting Restrictions: 10 pounds for 1 week. Dressing / Incision Call your doctor if your incision/area has: Continuous Slow Oozing, Sudden Increased Bleeding, Increased Pain/ Swelling and Increased Redness Call your doctor if you observe: Fever of 101 or Higher Suture Line Care: Avoid Pulling/Pushing and Avoid Pinching/Bending Remove Dressing in: 1 day Additional Dressing/Incision Instructions:: Remove bulky dressing tomorrow. May leave op-site dressing for 2-3 days. Okay to remove Steri-Strips from the breast incision in 7 to 10 days. Follow Up Care Please Follow Up With: Gwen Macedo MD When: Please call [phone] for an appointment to be seen in 2 week. Test Results: Test results from this visit will be discussed in further detail at your follow-up appointment, if applicable. Discharge Plan Admission Attending Provider: Gwen Macedo Primary Care Provider: Char Pan Instructions Print Language: Lithuanian Discharge Orders/Prescriptions Prescriptions: New oxycodone 5 mg capsule 5 mg PO Q6H PRN (Reason: pain) 3 Days Qty: 10 0RF Continued trazodone 50 mg tablet 50 mg PO DAILY albuterol sulfate 90 mcg/actuation aerosol powdr breath activated 1 inh inhalation Q4-6H PRN (Reason: shortness of breath or wheezing) fluticasone propion-salmeterol [Advair Diskus] 100-50 mcg/dose blister with device 1 inh inhalation BID Referrals / Follow Up: Char Pan MD [Primary Care Provider, Internal Medicine] Disposition Disposition (needs filled in before D/C Order can be placed): Home, Self Care
[2025-04-18] MEDS: Bupiv/Epi 0.25% 30 ML Vial (09:10)
[2025-04-18] MEDS: Ketorolac 30 MG/ML Syringe IV (09:13)
--- NOTE | 2025-04-18 09:43 | POSTOP.ANE_ITS ---
Anesthesia: Postop Eval I
--- NOTE | 2025-04-18 09:43 | PCM.POST.ANE ---
Anesthesia: Postop Eval I Current Vital Signs Temperature: 97 F Pulse Rate: 98 Blood Pressure: 136/87 Respiratory Rate: 16 Pulse Ox: 100 Oxygen Delivery Method: Room Air Assessment Airway patent: Yes Spontaneous unlabored respirations: Yes Mental status: Awake and Calm nausea: No Vomiting: No Anesthesia Complication: No Fluid Hydration Crystalloid volume administer (ml): 500 Total IV fluid infused: 500 Progress Note Anesthesia document: Postop Eval 1 completed: Yes
--- NOTE | 2025-04-18 11:51 | POSTOPAN2_ITS ---
Anesthesia Postop Eval I Sum
--- NOTE | 2025-04-18 11:51 | PCM.POSTANE2 ---
Anesthesia Postop Eval I Sum Postop Eval Completion status Anesthesia document: Postop Eval 1 completed: Yes Anesthesia Postop Eval I Summary Anesthesia Postop Eval I Summary: Anesthesia Postop Eval I: Assessment Summary Airway patent Yes 04/18/25 09:45 OIL LEASE [email or web address] Spontaneous unlabored Yes 04/18/25 09:45 OIL LEASE [email or web address] respirations Mental status Awake,Calm 04/18/25 09:45 OIL LEASE [email or web address] nausea No 04/18/25 09:45 OIL LEASE [email or web address].[email or web address] Vomiting No 04/18/25 09:45 OIL LEASE [email or web address].[email or web address] Anesthesia Postop Eval I: Fluid Summary Crystalloid volume administer 500 04/18/25 09:45 OIL LEASE [email or web address] (ml) Colloids volume administered ( ml) Blood Product volume administered (ml) Total IV fluid infused 500 04/18/25 09:45 OIL LEASE [email or web address] Anesthesia Postop Eval I: Summary Notes Anesthesia Complication No 04/18/25 09:45 OIL LEASE [email or web address].[email or web address] Anesthesia Complication Comment: Post-operative progress note Anesthesia: Postop Eval II Evaluation Mental status: Awake and Calm Pain Level: 1 nausea: No Vomiting: No Complications Anesthesia Complication: No
== END 2025-04-18 12:21 | disposition home or self-care (01) ==
LOC: SDC 05:52 → AC 05:53
PROVIDERS: Anesthesiology; PCP Internal Medicine; Referring Provider Internal Medicine; Visit Provider Surgery
PROC: (CPT 19120; principal; 2025-04-18 07:15)
DX: D24.1 Benign neoplasm of right breast (principal); J45.909 Unspecified asthma, uncomplicated; D24.2 Benign neoplasm of left breast
CPT/HCPCS: 19120; 00400; 76098; 81025; 88307; A4648; J2405

== ENCOUNTER 2025-05-13 11:35 | Outpatient (RCR) | payer OTHER, BC, SELFPAY | END 2025-05-19 23:59 | LOC: NS 11:35 | PROVIDERS: PCP Internal Medicine; Referring Provider Internal Medicine; Visit Provider Internal Medicine | DX: Z71.3 Dietary counseling and surveillance (principal); E66.01 Morbid (severe) obesity due to excess calories; Z68.41 Body mass index [BMI] 40.0-44.9, adult | CPT/HCPCS: 97803 ==

== ENCOUNTER 2025-06-05 11:37 | Outpatient (RCR) | payer OTHER, BC, SELFPAY | END 2025-06-19 23:59 | LOC: NS 11:37 | PROVIDERS: PCP Internal Medicine; Referring Provider Internal Medicine; Visit Provider Internal Medicine | DX: Z71.3 Dietary counseling and surveillance (principal); E66.01 Morbid (severe) obesity due to excess calories; Z68.42 Body mass index [BMI] 45.0-49.9, adult | CPT/HCPCS: 97803 ==

== ENCOUNTER → 2025-06-11 | Outpatient (CLI) | payer OTHER, BC, SELFPAY ==
[2025-06-11 12:20] LABS: Hematocrit 37.3 % (37-47); Hemoglobin 11.6 g/dL (12.0-15.0); Immature Granulocytes Count 0.010 X10^3/uL (0.0-0.0); Mean Corp Hgb Conc 31.1 g/dL (32-36); Mean Corpuscular Volume 89.7 fL (81-99); Mean Platelet Vol. 10.3 fl (6.2-12.0); NRBC Flagged by Analyzer 0 % (0-5); Platelet Count 445 K/mm3 (150-450); RBC Distribution Width CV 13.8 % (11.6-14.6); RBC Distribution Width SD 44.9 fl (35.1-43.9); Red Blood Count 4.16 M/mm3 (4.2-5.4); White Blood Count 7.1 K/mm3 (4.4-11.0)
[2025-06-11 13:33] LABS: AST(SGOT) 15 U/L (<=31); Alanine Aminotransfer ALT/SGPT 16 U/L (<=34); Albumin, Serum 4.3 g/dL (3.5-5.0); Alkaline Phosphatase 49 U/L (35-104); Anion Gap 11 (7-18); BUN 15 mg/dL (4-19); BUN/Creat Ratio 20.2 RATIO (10-20); Calcium,Total 9.5 mg/dL (7.6-11.0); Carbon Dioxide 23.1 mmol/L (20.0-29.0); Chloride 106 mmol/L (96-106); Cholesterol 160 mg/dL (<=200); Globulin 3.0 g/dL (2.2-4.2); Glucose 80 mg/dL (70-99); Low Density Lipoprotein Calc. 95 mg/dL; Potassium 4.2 mmol/L (3.5-5.1); Triglycerides 74 mg/dL; Very Low Density Lipoprotein 15 mg/dL (5-40); Vitamin D,25 Hydroxy 19.4 ng/mL (30-100); cholesterol:hdl ratio screen 3.13
== END | disposition home or self-care (01) ==
LOC: BWCLAB 08:19
PROVIDERS: PCP Internal Medicine; Visit Provider Nurse Practitioner Family
DX: E66.9 Obesity, unspecified (principal)
CPT/HCPCS: 36415; 80053; 80061; 82306; 83036; 84439; 84443; 85025